=== PATIENT | female | born 1955 | race African-American/Black ===

== ENCOUNTER 2018-10-15 16:03 | Emergency (ER) | payer MEDICARE, MEDICAID ==
[~2018-10-15] VITALS: Ht 157.5 cm; Wt 91.0 kg
[~2018-10-15 16:03] MED LIST: AMLO10TA80; AMOX500T2; BENA40TA66; CARI350T27; GLIP10TA3; HYDR-2510; HYDR-3162; METF-517; NAPR-1176; OMEP-265; SIMV40TA5
[2018-10-15 22:41] LABS: BASOPHILS % 0.9 % (0.0-2.0); EOSINOPHILS % 2.1 % (0.0-5.0); HEMATOCRIT. 38.7 % (36.0-48.0); HEMOGLOBIN. 12.2 g/dL (12.0-16.0); LYMPHOCYTES % 35.3 % (20.0-50.0); MEAN CORPUSCULAR HEMOGLOBIN 24.9 pg (28.0-32.0); MEAN CORPUSCULAR VOLUME 78.7 fL (81.0-99.0); MEAN PLATELET VOLUME 7.4 fl (7.4-10.4); MONOCYTES % 6.9 % (2.0-8.0); NEUTROPHILS % 54.8 % (40.0-76.0); PLATELET 478 x1000/uL (130-400); RED BLOOD CELL COUNT 4.92 mill/uL (4.2-5.4); RED CELL DISTRIBUTION WIDTH 15.4 % (11.6-14.6)
[2018-10-15 22:47] LABS: CHLORIDE 97 mEq/L (98-107)
[2018-10-15 22:49] LABS: PROTHROMBIN TIME 9.8 sec (9.6-11.0)
[2018-10-15 23:20] LABS: CLARITY URINE CLEAR (CLEAR); COLOR URINE YELLOW (YELLOW); KETONES URINE NEGATIVE (NEGATIVE); LEUKOCYTE ESTERASE URINE NEGATIVE (NEGATIVE); NITRITE URINE POSITIVE (NEGATIVE); OCCULT BLOOD URINE NEGATIVE (NEGATIVE); PROTEIN URINE TRACE (NEGATIVE); SPECIFIC GRAVITY URINE 1.014 (1.005-1.030); UROBILINOGEN URINE 0.2 E.U./dL (0.2-1.0)
[2018-10-15] MEDS ORDERED: HYDROCODONE/ACETAMINOPHEN 5/325MG TABLET PO ONE (23:30)
[2018-10-16] MEDS ORDERED: CEPHALEXIN 250MG CAPSULE PO ONE (01:00)
[2018-10-16 03:03] VITALS: BP 150/78
== END 2018-10-16 03:12 | disposition home or self-care (01) ==
LOC: ER 16:03
DX: N39.0 Urinary tract infection, site not specified (principal); E11.9 Type 2 diabetes mellitus without complications; I10 Essential (primary) hypertension; M54.30 Sciatica, unspecified side; Z96.659 Presence of unspecified artificial knee joint; Z90.710 Acquired absence of both cervix and uterus
CPT/HCPCS: 36415; 81003; 87210; 99283

== ENCOUNTER 2020-07-18 07:38 | Inpatient (IN) | payer MEDICARE, MEDICAID ==
[~2020-07-18] VITALS: Ht 160 cm; Wt 87.1 kg
[~2020-07-18 07:38] MED LIST changes: -HYDR-2510; +HYDR50TA; -METF-517; +METF-817; +SIMV-46; -SIMV40TA5
[2020-07-18] MEDS ORDERED: SODIUM CHLORIDE 0.9% 1,000 ML IV ONE (08:30)
[2020-07-18 08:48] LABS: BASOPHILS % 0.6 % (0.0-2.0); HEMATOCRIT. 35.5 % (36.0-48.0); HEMOGLOBIN. 11.7 g/dL (12.0-16.0); LYMPHOCYTES % 28.1 % (20.0-50.0); MEAN CORPUSCULAR HEMOGLOBIN 27.9 pg (28.0-32.0); MEAN CORPUSCULAR VOLUME 84.5 fL (81.0-99.0); MEAN PLATELET VOLUME 7.5 fl (7.4-10.4); MONOCYTES % 8.7 % (2.0-8.0); NEUTROPHILS % 61.6 % (40.0-76.0); PLATELET 430 x1000/uL (130-400); RED CELL DISTRIBUTION WIDTH 14.4 % (11.6-14.6)
[2020-07-18 08:53] LABS: CHLORIDE 95 mEq/L (98-107)
[2020-07-18 09:02] LABS: BETA HYDROXYBUTYRATE 0.2 mMol/L (0.0-0.3)
[2020-07-18 09:16] LABS: BG BASE EXCESS 1.9 mmol/L (-2.0-2.0); BG CARBOXYHEMOGLOBIN 0.3 % (0.5-1.5); BG DEOXYHEMOGLOBIN 4.4 % (0.0-5.0); BG FRACTION INSPIRED OXYGEN 21; BG HCO3 ACT 27.1 mmol/L (22.0-26.0); BG METHEMOGLOBIN 0.2 % (0.0-1.5); BG OXYGEN SATURATION 95.6 % (92.0-98.5); BG OXYHEMOGLOBIN 95.1 % (94.0-97.0); BG PCO2 45.1 mmHg (35.0-45.0); BG PH 7.397 (7.350-7.450); BG PO2 79.3 mmHg (75.0-100.0); BG SAMPLE SITE RIGHT RADIAL; BG VENT MODE ROOM AIR
[2020-07-18 09:50] LABS: CLARITY URINE TURBID (CLEAR); COLOR URINE YELLOW (YELLOW); KETONES URINE NEGATIVE (NEGATIVE); LEUKOCYTE ESTERASE URINE 2+ (NEGATIVE); NITRITE URINE NEGATIVE (NEGATIVE); OCCULT BLOOD URINE 3+ (NEGATIVE); PROTEIN URINE 1+ (NEGATIVE); SPECIFIC GRAVITY URINE 1.029 (1.005-1.030); UROBILINOGEN URINE 0.2 E.U./dL (0.2-1.0)
[2020-07-18] MEDS ORDERED: LEVOFLOXACIN 750MG PREMIX 150 ML IV ONE (10:00)
[2020-07-18] MEDS ORDERED: INSULIN REGULAR (HUMULIN R) 300UNITS/3ML VIAL IV ONE (10:00)
[2020-07-18] MEDS ORDERED: ONDANSETRON HCL 4MG/2ML INJ IV PRN (16:15)
[2020-07-18] MEDS ORDERED: DEXTROSE 50% WATER 50ML SYRINGE IV PRN (16:15)
[2020-07-18] MEDS ORDERED: CLONIDINE 0.1MG TABLET PO PRN (16:15)
[2020-07-18] MEDS ORDERED: DIPHENHYDRAMINE 50MG/ML VIAL IV PRN (16:15)
[2020-07-18] MEDS ORDERED: ACETAMINOPHEN 325MG TABLET PO PRN ×2 (16:15)
[2020-07-18] MEDS ORDERED: IPRATROPIUM/ALBUTEROL 0.5-3(2.5)MG/3ML NEB HHN PRN (16:15)
[2020-07-18] MEDS: SODIUM CHLORIDE 0.9% 1,000 ML IV SCH (16:48)
[2020-07-18] MEDS: BLOOD SUGAR DIAGNOSTIC STRIP TEST SCH ×2 (17:34→21:11)
[2020-07-18] MEDS: INSULIN LISPRO 100 UNITS/ML SUBCUT SCH ×2 (19:04→21:16)
[2020-07-18 22:30] VITALS: BP 137/72
[2020-07-19] VITALS: BP 146/76
[2020-07-19] MEDS ORDERED: GABAPENTIN 400MG CAPSULE PO NR (01:15)
[2020-07-19] MEDS: SODIUM CHLORIDE 0.9% 1,000 ML IV SCH ×3 (01:54→21:43)
[2020-07-19] MEDS ORDERED: INSULIN GLARGINE UD 100 UNITS/ML SYR SUBCUT SCH ×2 (02:00→22:00)
[2020-07-19 04:00] VITALS: BP 136/61
[2020-07-19] MEDS ORDERED: HYDR100T26 PO (04:22)
[2020-07-19] MEDS ORDERED: GABA800T97 PO (04:26)
[2020-07-19] MEDS ORDERED: ATEN50TA PO (04:32)
[2020-07-19] MEDS ORDERED: MECL-159 PO (04:33)
[2020-07-19] MEDS ORDERED: CLON0.2T PO (04:34)
[2020-07-19] MEDS ORDERED: AMYL1CAP61 PO (04:37)
[2020-07-19] MEDS ORDERED: GABA-290 PO (04:38)
[2020-07-19] MEDS ORDERED: OMEP20CA14 PO (04:38)
[2020-07-19] MEDS ORDERED: ZOLP12.543 PO (04:40)
[2020-07-19] MEDS ORDERED: INSU100I24 SQ (04:41)
[2020-07-19] MEDS ORDERED: METF-817 (04:50)
[2020-07-19 06:42] LABS: BASOPHILS % 0.5 % (0.0-2.0); EOSINOPHILS % 1.2 % (0.0-5.0); LYMPHOCYTES % 35.2 % (20.0-50.0); MEAN CORPUSCULAR HEMOGLOBIN 27.7 pg (28.0-32.0); MEAN CORPUSCULAR VOLUME 83.3 fL (81.0-99.0); MEAN PLATELET VOLUME 7.8 fl (7.4-10.4); MONOCYTES % 7.5 % (2.0-8.0); NEUTROPHILS % 55.6 % (40.0-76.0); PLATELET 453 x1000/uL (130-400); RED BLOOD CELL COUNT 4.32 mill/uL (4.2-5.4); RED CELL DISTRIBUTION WIDTH 14.4 % (11.6-14.6)
[2020-07-19 07:01] LABS: CHLORIDE 100 mEq/L (98-107)
[2020-07-19] MEDS: GABAPENTIN 300MG CAPSULE PO SCH ×3 (07:06→21:38)
[2020-07-19] MEDS: METFORMIN HCL 850MG TABLET PO SCH ×2 (07:06→17:24)
[2020-07-19] MEDS: INSULIN LISPRO 100 UNITS/ML SUBCUT SCH ×4 (07:07→20:24)
[2020-07-19] MEDS: BLOOD SUGAR DIAGNOSTIC STRIP TEST SCH ×4 (07:08→20:23)
[2020-07-19 07:18] LABS: PHOSPHORUS 2.9 mg/dL (2.5-4.9)
[2020-07-19 08:00] VITALS: BP 141/58
[2020-07-19] MEDS: AMLODIPINE 10MG TABLET PO SCH (08:47)
[2020-07-19] MEDS: HYDROCODONE/APAP 7.5/325MG 1 TAB TABLET PO PRN (08:48)
[2020-07-19] MEDS ORDERED: LEVOFLOXACIN 250MG PREMIX 50 ML IV SCH (09:00)
[2020-07-19] MEDS ORDERED: LEVOFLOXACIN 500MG PREMIX 100 ML IV SCH (11:30)
[2020-07-19 12:00] VITALS: BP 152/80
[2020-07-19] MEDS ORDERED: CEFTRIAXONE 1 G PREMIX 50 ML IV SCH (12:45)
[2020-07-19] MEDS: CEFTRIAXONE 1,000 MG in DEXTROSE 5% WATER 50 ML IV SCH (13:58)
[2020-07-19 16:00] VITALS: BP 123/64
[2020-07-19] MEDS ORDERED: MAGNESIUM 2 G PREMIX 50 ML IV NR (18:00)
[2020-07-19 20:00] VITALS: BP 158/80
[2020-07-19] MEDS ORDERED: ATORVASTATIN CALCIUM 40MG TABLET PO SCH (21:00)
[2020-07-19] MEDS ORDERED: IOHEXOL-300 100 ML BOTTLE ONE (22:43)
[2020-07-20] VITALS: BP 135/51
[2020-07-20] MEDS: HYDROCODONE/APAP 7.5/325MG 1 TAB TABLET PO PRN ×2 (00:46→12:41)
[2020-07-20 04:00] VITALS: BP 129/54
[2020-07-20] MEDS: BLOOD SUGAR DIAGNOSTIC STRIP TEST SCH ×2 (05:51→11:50)
[2020-07-20] MEDS: GABAPENTIN 300MG CAPSULE PO SCH ×2 (05:56→14:00)
[2020-07-20] MEDS: METFORMIN HCL 850MG TABLET PO SCH (06:25)
[2020-07-20] MEDS: INSULIN LISPRO 100 UNITS/ML SUBCUT SCH ×2 (06:26→12:42)
[2020-07-20 08:00] VITALS: BP 168/109
[2020-07-20] MEDS: SODIUM CHLORIDE 0.9% 1,000 ML IV SCH (08:37)
[2020-07-20] MEDS: AMLODIPINE 10MG TABLET PO SCH (08:38)
[2020-07-20] MEDS ORDERED: LEVOFLOXACIN 500MG PREMIX 100 ML IV SCH (09:00)
[2020-07-20 12:00] VITALS: BP 143/66
[2020-07-20] MEDS: CEFTRIAXONE 1,000 MG in DEXTROSE 5% WATER 50 ML IV SCH (14:53)
[2020-07-20 14:59] VITALS: BP 143/66
== END 2020-07-20 15:49 | disposition home or self-care (01) | DRG 689 ==
LOC: ER 07:38 → 5WST 13:09 → EDBEDREQ 13:15 → EDBEDREQTM 13:15 → ENRESERV 20:47
PROVIDERS: ADMIT Internal Medicine; ATTEND Internal Medicine
DX: N30.91 Cystitis, unspecified with hematuria (principal); E11.00 Type 2 diabetes mellitus with hyperosmolarity without nonketotic hyperglycemic-hyperosmolar coma (NKHHC); E44.1 Mild protein-calorie malnutrition; E87.1 Hypo-osmolality and hyponatremia; I10 Essential (primary) hypertension; E11.40 Type 2 diabetes mellitus with diabetic neuropathy, unspecified; N32.89 Other specified disorders of bladder; E11.65 Type 2 diabetes mellitus with hyperglycemia; I25.10 Atherosclerotic heart disease of native coronary artery without angina pectoris; J45.909 Unspecified asthma, uncomplicated; Z90.711 Acquired absence of uterus with remaining cervical stump; Z96.659 Presence of unspecified artificial knee joint; Z87.440 Personal history of urinary (tract) infections; Z68.34 Body mass index [BMI] 34.0-34.9, adult
CPT/HCPCS: 36415; 36600; 74178; 76830; 76856; 80048; 80053; 81003; 82010; 82375; 82805; 82962; 83036; 83735; 84100; 85025; 86850; 86900; 93005; 93970; 99285; J0696; J1815; J1956; J3475; J7030; J7060; Q9967

== ENCOUNTER 2020-09-21 05:40 | Inpatient (IN) | payer MEDICARE, MEDICAID ==
[~2020-09-21] VITALS: Ht 157.5 cm; Wt 83.9 kg
[~2020-09-21 05:40] MED LIST changes: -AMOX500T2; +AMYL1CAP61 PO; +ATEN50TA PO; -BENA40TA66; -CARI350T27; +CLON0.2T PO; +GABA-290 PO; -GLIP10TA3; +HYDR100T26 PO; +INSU100I24 SQ; +MECL-159 PO; -NAPR-1176; -OMEP-265; +OMEP20CA14 PO; -SIMV-46; +ZOLP12.543 PO
[2020-09-21] MEDS ORDERED: ALBUTEROL (0.083%) 2.5MG/3ML NEB HHN STA (06:33)
[2020-09-21] MEDS ORDERED: IPRATROPIUM BROMIDE (0.02%) 0.5MG/2.5ML NEB HHN STA (06:33)
[2020-09-21] MEDS ORDERED: METHYLPREDNISOLONE SOD SUCC 125 MG/2 ML VIAL IV STA (06:59)
[2020-09-21] MEDS ORDERED: MAGNESIUM 2 G PREMIX 50 ML IV STA (06:59)
[2020-09-21 07:14] LABS: BASOPHILS % 0.6 % (0.0-2.0); EOSINOPHILS % 1.2 % (0.0-5.0); HEMATOCRIT. 32.9 % (36.0-48.0); HEMOGLOBIN. 10.6 g/dL (12.0-16.0); LYMPHOCYTES % 27.3 % (20.0-50.0); MEAN CORPUSCULAR HEMOGLOBIN 26.8 pg (28.0-32.0); MEAN CORPUSCULAR VOLUME 83.3 fL (81.0-99.0); MEAN PLATELET VOLUME 6.9 fl (7.4-10.4); MONOCYTES % 7.2 % (2.0-8.0); NEUTROPHILS % 63.7 % (40.0-76.0); PLATELET 460 x1000/uL (130-400); RED BLOOD CELL COUNT 3.95 mill/uL (4.2-5.4); RED CELL DISTRIBUTION WIDTH 14.2 % (11.6-14.6)
[2020-09-21] MEDS ORDERED: CEFTRIAXONE 1 G PREMIX 50 ML IV ONE (07:15)
[2020-09-21] MEDS ORDERED: AZITHROMYCIN 500 MG in DEXT 5% WATER 250 ML IV ONE (07:15)
[2020-09-21 07:17] LABS: CHLORIDE 103 mEq/L (98-107)
[2020-09-21 15:50] VITALS: BP 191/99
[2020-09-21 16:30] VITALS: BP 191/99
[2020-09-21] MEDS ORDERED: IPRATROPIUM/ALBUTEROL 0.5-3(2.5)MG/3ML NEB HHN ONE (16:45)
[2020-09-21] MEDS ORDERED: DEXTROSE 50% WATER 50ML SYRINGE IV PRN (16:45)
[2020-09-21] MEDS ORDERED: ATENOLOL 50 MG TABLET PO SCH (17:45)
[2020-09-21] MEDS ORDERED: AMLODIPINE 10MG TABLET PO SCH (17:45)
[2020-09-21] MEDS: BLOOD SUGAR DIAGNOSTIC STRIP TEST SCH ×2 (17:54→21:07)
[2020-09-21] MEDS: INSULIN LISPRO 100 UNITS/ML SUBCUT SCH ×2 (18:18→21:46)
[2020-09-21 19:59] VITALS: BP 157/67
[2020-09-21] MEDS ORDERED: ZOLPIDEM TARTRATE 5MG TABLET PO PRN (21:00)
[2020-09-21] MEDS ORDERED: INSULIN GLARGINE UD 100 UNITS/ML SYR SUBCUT SCH (21:00)
[2020-09-21] MEDS: IPRATROPIUM/ALBUTEROL 0.5-3(2.5)MG/3ML NEB HHN SCH (21:10)
[2020-09-21] MEDS: OMEPRAZOLE 20MG CAPSULE EXTENDED RELEASE PO SCH (21:45)
[2020-09-21] MEDS: HYDRALAZINE HCL 100MG TABLET PO SCH (21:46)
[2020-09-21] MEDS: CLONIDINE 0.2MG TABLET PO SCH (21:46)
[2020-09-21] MEDS ORDERED: METHYLPREDNISOLONE SOD SUCC 125 MG/2 ML VIAL IV SCH (22:00)
[2020-09-21 23:58] VITALS: BP 140/70
[2020-09-22] MEDS: IPRATROPIUM/ALBUTEROL 0.5-3(2.5)MG/3ML NEB HHN SCH ×3 (00:36→13:05)
[2020-09-22] MEDS: GABAPENTIN 300MG CAPSULE PO SCH ×2 (01:29→08:39)
[2020-09-22 04:00] VITALS: BP 151/77
[2020-09-22] MEDS: BLOOD SUGAR DIAGNOSTIC STRIP TEST SCH ×3 (06:22→17:20)
[2020-09-22] MEDS: OMEPRAZOLE 20MG CAPSULE EXTENDED RELEASE PO SCH (06:36)
[2020-09-22] MEDS: INSULIN LISPRO 100 UNITS/ML SUBCUT SCH ×3 (06:39→18:12)
[2020-09-22] MEDS ORDERED: GLIPIZIDE 10MG TABLET PO SCH (07:20)
[2020-09-22 08:09] VITALS: BP 156/82
[2020-09-22] MEDS: METFORMIN HCL 500MG TABLET PO SCH ×2 (08:38→18:07)
[2020-09-22] MEDS: HYDRALAZINE HCL 100MG TABLET PO SCH (08:38)
[2020-09-22] MEDS: LIPASE/PROTEASE/AMYLASE 4,200/14,200/24,600 UNITS CAP DR PO SCH ×3 (08:38→18:06)
[2020-09-22] MEDS: CLONIDINE 0.2MG TABLET PO SCH (08:39)
[2020-09-22] MEDS ORDERED: ATENOLOL 50 MG TABLET PO SCH (09:00)
[2020-09-22] MEDS ORDERED: AMLODIPINE 10MG TABLET PO SCH (09:00)
[2020-09-22 11:03] VITALS: BP 126/66
[2020-09-22 16:42] VITALS: BP 147/71
[2020-09-22 18:22] VITALS: BP 147/71
[2020-09-22] MEDS ORDERED: FAMOTIDINE 20MG TABLET PO SCH (21:00)
== END 2020-09-22 20:40 | disposition home or self-care (01) | DRG 189 ==
LOC: ER 05:40 → EDBEDREQ 07:48 → ENRESERV 13:15 → 6WST 17:36
PROVIDERS: ADMIT Internal Medicine; ATTEND Internal Medicine
DX: J96.01 Acute respiratory failure with hypoxia (principal); J45.901 Unspecified asthma with (acute) exacerbation; E66.9 Obesity, unspecified; E11.9 Type 2 diabetes mellitus without complications; I10 Essential (primary) hypertension; Z96.659 Presence of unspecified artificial knee joint; G62.9 Polyneuropathy, unspecified; G89.29 Other chronic pain; K21.9 Gastro-esophageal reflux disease without esophagitis; M54.5 Low back pain; Z82.49 Family history of ischemic heart disease and other diseases of the circulatory system; Z82.5 Family history of asthma and other chronic lower respiratory diseases; Z83.3 Family history of diabetes mellitus; Z68.33 Body mass index [BMI] 33.0-33.9, adult
CPT/HCPCS: 36415; 71045; 73030; 80053; 82962; 83036; 83605; 83880; 84484; 85025; 93005; 94640; 99291; J0456; J0696; J1815; J2930; J3475; J7060

== ENCOUNTER 2020-10-10 23:29 | Inpatient (IN) | payer MEDICARE, MEDICAID ==
[~2020-10-10] VITALS: Ht 165.1 cm; Wt 92.5 kg
[2020-10-10] MEDS ORDERED: METHYLPREDNISOLONE SOD SUCC 125 MG/2 ML VIAL IV STA (23:48)
[2020-10-10] MEDS ORDERED: IPRATROPIUM BROMIDE (0.02%) 0.5MG/2.5ML NEB HHN STA (23:48)
[2020-10-10] MEDS ORDERED: ALBUTEROL (0.083%) 2.5MG/3ML NEB HHN STA (23:48)
[2020-10-10] MEDS ORDERED: MAGNESIUM 2 G PREMIX 50 ML IV STA (23:48)
[2020-10-11] MEDS ORDERED: CEFTRIAXONE 1 G PREMIX 50 ML IV ONE
[2020-10-11] MEDS ORDERED: AZITHROMYCIN 500 MG in DEXT 5% WATER 250 ML IV ONE
[2020-10-11 00:56] LABS: BASOPHILS % 0.9 % (0.0-2.0); EOSINOPHILS % 0.9 % (0.0-5.0); HEMATOCRIT. 34.5 % (36.0-48.0); HEMOGLOBIN. 11.3 g/dL (12.0-16.0); LYMPHOCYTES % 24.6 % (20.0-50.0); MEAN CORPUSCULAR HEMOGLOBIN 27.4 pg (28.0-32.0); MEAN PLATELET VOLUME 7.8 fl (7.4-10.4); MONOCYTES % 5.3 % (2.0-8.0); NEUTROPHILS % 68.3 % (40.0-76.0); PLATELET 528 x1000/uL (130-400); RED BLOOD CELL COUNT 4.11 mill/uL (4.2-5.4); RED CELL DISTRIBUTION WIDTH 14.2 % (11.6-14.6)
[2020-10-11 01:03] LABS: CHLORIDE 102 mEq/L (98-107)
[2020-10-11] MEDS ORDERED: ALBUTEROL (0.083%) 2.5MG/3ML NEB INH PRN (07:30)
[2020-10-11] MEDS ORDERED: DEXTROSE 50% WATER 50ML SYRINGE IV PRN (07:30)
[2020-10-11] MEDS: INSULIN LISPRO 100 UNITS/ML SUBCUT SCH ×4 (08:20→21:01)
[2020-10-11] MEDS ORDERED: INSULIN GLARGINE UD 100 UNITS/ML SYR SUBCUT NR (08:30)
[2020-10-11] MEDS: BLOOD SUGAR DIAGNOSTIC STRIP TEST SCH ×4 (09:20→20:48)
[2020-10-11] MEDS: DEXAMETHASONE 10 MG/ML VIAL IV SCH (09:27)
[2020-10-11] MEDS: GABAPENTIN 300MG CAPSULE PO PRN ×2 (10:54→20:59)
[2020-10-11] MEDS: ENOXAPARIN 40MG/0.4ML SYR SUBCUT SCH (10:54)
[2020-10-11 12:02] VITALS: BP 151/73
[2020-10-11 16:00] VITALS: BP 159/77
[2020-10-11 16:25] VITALS: BP 151/73
[2020-10-11 20:00] VITALS: BP 186/90
[2020-10-11] MEDS: HYDRALAZINE HCL 100MG TABLET PO SCH (21:00)
[2020-10-11] MEDS: HYDROCODONE/ACETAMINOPHEN 10/325MG TABLET PO PRN (21:00)
[2020-10-11] MEDS ORDERED: AZITHROMYCIN 250 MG TABLET PO SCH (22:00)
[2020-10-11] MEDS ORDERED: INSULIN GLARGINE UD 100 UNITS/ML SYR SUBCUT SCH (22:00)
[2020-10-11] MEDS ORDERED: NALOXONE HCL 0.4MG/ML VIAL IV PRN (22:15)
[2020-10-11] MEDS: CLONIDINE 0.2MG TABLET PO SCH (22:18)
[2020-10-11] MEDS: INSULIN GLARGINE UD 100 UNITS/ML SYR SUBCUT SCH (22:33)
[2020-10-11] MEDS ORDERED: CEFTRIAXONE 1 G PREMIX 50 ML IV SCH (23:00)
[2020-10-11] MEDS ORDERED: CEFTRIAXONE 1,000 MG in DEXTROSE 5% WATER 50 ML IV SCH (23:00)
[2020-10-12] VITALS: BP 153/78
[2020-10-12 04:00] VITALS: BP 123/63
[2020-10-12] MEDS: BLOOD SUGAR DIAGNOSTIC STRIP TEST SCH ×2 (06:07→11:26)
[2020-10-12] MEDS: HYDROCODONE/ACETAMINOPHEN 10/325MG TABLET PO PRN (06:13)
[2020-10-12] MEDS: HYDRALAZINE HCL 100MG TABLET PO SCH (06:13)
[2020-10-12] MEDS: INSULIN LISPRO 100 UNITS/ML SUBCUT SCH ×2 (06:14→11:45)
[2020-10-12 08:00] VITALS: BP 179/92
[2020-10-12] MEDS: CLONIDINE 0.2MG TABLET PO SCH (08:30)
[2020-10-12] MEDS: DEXAMETHASONE 10 MG/ML VIAL IV SCH (08:31)
[2020-10-12] MEDS ORDERED: AMLODIPINE 10MG TABLET PO SCH (09:00)
[2020-10-12] MEDS ORDERED: ATENOLOL 50 MG TABLET PO SCH (09:00)
[2020-10-12] MEDS: ENOXAPARIN 40MG/0.4ML SYR SUBCUT SCH (10:24)
[2020-10-12] MEDS: INSULIN GLARGINE UD 100 UNITS/ML SYR SUBCUT SCH (10:31)
[2020-10-12] MEDS ORDERED: LEVO500T89 MT (11:23)
[2020-10-12] MEDS ORDERED: P20 MT (11:24)
[2020-10-12 11:29] VITALS: BP 143/85
[2020-10-12 12:00] VITALS: BP 140/69
[2020-10-12] MEDS ORDERED: CLONIDINE 0.2MG TABLET PO SCH (15:00)
[2020-10-12] MEDS ORDERED: ENOXAPARIN 30MG/0.3ML SYR SUBCUT SCH (21:00)
== END 2020-10-12 15:47 | disposition home or self-care (01) | DRG 189 ==
LOC: ER 23:29 → 7EST 10-11 01:10 → EDBEDREQTM 10-11 01:15 → EDBEDREQ 10-11 01:15 → ENRESERV 10-11 07:14 → ER 10-11 09:09
PROVIDERS: ADMIT Internal Medicine Nephrology; ATTEND Internal Medicine Nephrology
DX: J96.01 Acute respiratory failure with hypoxia (principal); J45.901 Unspecified asthma with (acute) exacerbation; E87.1 Hypo-osmolality and hyponatremia; E11.65 Type 2 diabetes mellitus with hyperglycemia; D64.9 Anemia, unspecified; Z20.822 Contact with and (suspected) exposure to COVID-19; Z88.8 Allergy status to other drugs, medicaments and biological substances; Z79.4 Long term (current) use of insulin; Z79.899 Other long term (current) drug therapy; Z79.891 Long term (current) use of opiate analgesic; Z82.49 Family history of ischemic heart disease and other diseases of the circulatory system
CPT/HCPCS: 36415; 71045; 80053; 82962; 83605; 83880; 84484; 85025; 87426; 93005; 94640; 99291; J0456; J0696; J1100; J1650; J1815; J2930; J3475; J7040; J7060

== ENCOUNTER 2020-10-28 07:21 | Inpatient (IN) | payer MEDICARE, MEDICAID ==
[~2020-10-28] VITALS: Ht 157.5 cm; Wt 88.5 kg
[~2020-10-28 07:21] MED LIST changes: +LEVO500T89 MT; +P20 MT
[2020-10-28] MEDS ORDERED: METHYLPREDNISOLONE SOD SUCC 125 MG/2 ML VIAL IV STA (07:23)
[2020-10-28] MEDS ORDERED: ALBUTEROL (0.083%) 2.5MG/3ML NEB HHN STA (07:23)
[2020-10-28] MEDS ORDERED: IPRATROPIUM BROMIDE (0.02%) 0.5MG/2.5ML NEB HHN STA (07:23)
[2020-10-28 08:05] LABS: BASOPHILS % 0.5 % (0.0-2.0); EOSINOPHILS % 0.6 % (0.0-5.0); HEMATOCRIT. 35.1 % (36.0-48.0); HEMOGLOBIN. 11.1 g/dL (12.0-16.0); LYMPHOCYTES % 21.1 % (20.0-50.0); MEAN CORPUSCULAR HEMOGLOBIN 26.9 pg (28.0-32.0); MEAN CORPUSCULAR VOLUME 85.5 fL (81.0-99.0); MEAN PLATELET VOLUME 8.7 fl (7.4-10.4); MONOCYTES % 5.5 % (2.0-8.0); NEUTROPHILS % 72.3 % (40.0-76.0); PLATELET 439 x1000/uL (130-400); RED BLOOD CELL COUNT 4.11 mill/uL (4.2-5.4); RED CELL DISTRIBUTION WIDTH 15.4 % (11.6-14.6)
[2020-10-28 08:25] LABS: CHLORIDE 101 mEq/L (98-107)
[2020-10-28] MEDS ORDERED: ONDANSETRON HCL 4MG/2ML INJ IV PRN (13:00)
[2020-10-28] MEDS ORDERED: INSULIN GLARGINE UD 100 UNITS/ML SYR SUBCUT NR (13:00)
[2020-10-28] MEDS ORDERED: IPRATROPIUM/ALBUTEROL 0.5-3(2.5)MG/3ML NEB HHN PRN (13:00)
[2020-10-28] MEDS ORDERED: ALBUTEROL 6.7GM HFA INHALER ORI PRN (14:00)
[2020-10-28] MEDS ORDERED: DEXTROSE 50% WATER 50ML SYRINGE IV PRN (14:00)
[2020-10-28] MEDS ORDERED: AZITHROMYCIN 500 MG TABLET PO NR (14:15)
[2020-10-28] MEDS ORDERED: CEFTRIAXONE 1,000 MG in DEXTROSE 5% WATER 50 ML IV SCH (15:00)
[2020-10-28] MEDS: DEXAMETHASONE 6MG TABLET PO SCH ×2 (15:17→15:43)
[2020-10-28] MEDS: BLOOD SUGAR DIAGNOSTIC STRIP TEST SCH ×2 (16:53→21:00)
[2020-10-28 17:00] LABS: BG BASE EXCESS -4.7 mmol/L (-2.0-2.0); BG CARBOXYHEMOGLOBIN 0.3 % (0.5-1.5); BG DEOXYHEMOGLOBIN 3.7 % (0.0-5.0); BG FRACTION INSPIRED OXYGEN 36; BG HCO3 ACT 20.4 mmol/L (22.0-26.0); BG METHEMOGLOBIN 0.3 % (0.0-1.5); BG OXYGEN SATURATION 96.3 % (92.0-98.5); BG OXYHEMOGLOBIN 95.7 % (94.0-97.0); BG PCO2 37.4 mmHg (35.0-45.0); BG PH 7.354 (7.350-7.450); BG PO2 84.7 mmHg (75.0-100.0); BG SAMPLE SITE RIGHT RADIAL; BG TOTAL HEMOGLOBIN 11.2 g/dL (12.0-18.0); BG VENT MODE NASAL CANNULA
[2020-10-28] MEDS: INSULIN LISPRO 100 UNITS/ML SUBCUT SCH ×2 (17:23→23:04)
[2020-10-28] MEDS: METHYLPREDNISOLONE SOD SUCC 40 MG/ML VIAL IV SCH (17:46)
[2020-10-28] MEDS: ENOXAPARIN 30MG/0.3ML SYR SUBCUT SCH (18:03)
[2020-10-28] MEDS ORDERED: INSULIN GLARGINE UD 100 UNITS/ML SYR SUBCUT SCH (22:00)
[2020-10-28] MEDS: ACETAMINOPHEN 325MG TABLET PO PRN (23:04)
[2020-10-29] MEDS: METHYLPREDNISOLONE SOD SUCC 40 MG/ML VIAL IV SCH ×3 (01:00→18:21)
[2020-10-29 03:33] LABS: *AMPHETAMINES SCREEN URINE NEGATIVE (NEGATIVE); *BARBITURATES SCREEN URINE NEGATIVE (NEGATIVE)
[2020-10-29 03:34] LABS: *BENZODIAZEPINES SCREEN URINE NEGATIVE (NEGATIVE); *COCAINE SCREEN URINE NEGATIVE (NEGATIVE); METHADONE URINE SCREEN NEGATIVE (NEGATIVE); OPIATES URINE SCREEN NEGATIVE (NEGATIVE)
[2020-10-29 03:35] LABS: CANNABINOID URINE SCREEN NEGATIVE (NEGATIVE); PHENCYCLIDINE URINE SCREEN NEGATIVE (NEGATIVE)
[2020-10-29 06:00] VITALS: BP 163/76
[2020-10-29] MEDS: BLOOD SUGAR DIAGNOSTIC STRIP TEST SCH ×4 (07:14→21:00)
[2020-10-29] MEDS: ENOXAPARIN 30MG/0.3ML SYR SUBCUT SCH ×2 (07:14→18:22)
[2020-10-29 08:00] VITALS: BP 163/78
[2020-10-29] MEDS: AZITHROMYCIN 250 MG TABLET PO SCH (08:18)
[2020-10-29] MEDS: INSULIN LISPRO 100 UNITS/ML SUBCUT SCH ×4 (08:22→22:45)
[2020-10-29] MEDS: AMLODIPINE 10MG TABLET PO SCH (09:46)
[2020-10-29] MEDS: INSULIN GLARGINE UD 100 UNITS/ML SYR SUBCUT SCH ×2 (09:47→22:44)
[2020-10-29] MEDS: GABAPENTIN 300MG CAPSULE PO SCH ×2 (11:59→18:21)
[2020-10-29 12:00] VITALS: BP 140/77
[2020-10-29] MEDS ORDERED: CEFTRIAXONE 1,000 MG in DEXTROSE 5% WATER 50 ML IV SCH (15:00)
[2020-10-29 16:00] VITALS: BP 142/66
[2020-10-29 19:48] LABS: BASOPHILS % 0.3 % (0.0-2.0); HEMATOCRIT. 36.2 % (36.0-48.0); HEMOGLOBIN. 11.6 g/dL (12.0-16.0); LYMPHOCYTES % 8.1 % (20.0-50.0); MEAN CORPUSCULAR HEMOGLOBIN 27.1 pg (28.0-32.0); MEAN CORPUSCULAR VOLUME 84.5 fL (81.0-99.0); MEAN PLATELET VOLUME 8.3 fl (7.4-10.4); MONOCYTES % 3.8 % (2.0-8.0); NEUTROPHILS % 87.8 % (40.0-76.0); PLATELET 500 x1000/uL (130-400); RED BLOOD CELL COUNT 4.28 mill/uL (4.2-5.4); RED CELL DISTRIBUTION WIDTH 15.2 % (11.6-14.6)
[2020-10-29 19:53] LABS: CHLORIDE 104 mEq/L (98-107)
[2020-10-29] MEDS ORDERED: PNEUMOCOCCAL 23-VAL P-SAC VAC 0.5 ML IM ONE (20:00)
[2020-10-29] MEDS ORDERED: INFLUENZA VACCINE 05/PF 0.5 ML SYRINGE IM ONE (20:00)
[2020-10-29] MEDS: ACETAMINOPHEN 325MG TABLET PO PRN (22:46)
[2020-10-30] VITALS: BP 174/87
[2020-10-30] MEDS: METHYLPREDNISOLONE SOD SUCC 40 MG/ML VIAL IV SCH ×2 (01:59→08:14)
[2020-10-30 04:00] VITALS: BP 197/109
[2020-10-30] MEDS ORDERED: CLONIDINE 0.1MG TABLET PO PRN (05:45)
[2020-10-30] MEDS: ENOXAPARIN 30MG/0.3ML SYR SUBCUT SCH (06:37)
[2020-10-30] MEDS: INSULIN LISPRO 100 UNITS/ML SUBCUT SCH ×2 (06:38→12:08)
[2020-10-30] MEDS: BLOOD SUGAR DIAGNOSTIC STRIP TEST SCH ×2 (06:51→11:18)
[2020-10-30 07:40] VITALS: BP 160/82
[2020-10-30] MEDS: AMLODIPINE 10MG TABLET PO SCH (08:14)
[2020-10-30] MEDS: GABAPENTIN 300MG CAPSULE PO SCH (08:14)
[2020-10-30 08:47] LABS: BG BASE EXCESS 5.2 mmol/L (-2.0-2.0); BG CARBOXYHEMOGLOBIN 0.2 % (0.5-1.5); BG DEOXYHEMOGLOBIN 7.2 % (0.0-5.0); BG FRACTION INSPIRED OXYGEN 21; BG HCO3 ACT 30.7 mmol/L (22.0-26.0); BG METHEMOGLOBIN 0.2 % (0.0-1.5); BG OXYGEN SATURATION 92.8 % (92.0-98.5); BG OXYHEMOGLOBIN 92.4 % (94.0-97.0); BG PH 7.415 (7.350-7.450); BG PO2 66.2 mmHg (75.0-100.0); BG SAMPLE SITE RIGHT RADIAL; BG TOTAL HEMOGLOBIN 12.2 g/dL (12.0-18.0); BG VENT MODE ROOM AIR
[2020-10-30] MEDS: INSULIN GLARGINE UD 100 UNITS/ML SYR SUBCUT SCH (09:07)
[2020-10-30] MEDS: AZITHROMYCIN 250 MG TABLET PO SCH (10:47)
[2020-10-30 11:47] VITALS: BP 154/76
[2020-10-30] MEDS ORDERED: P20 MT (13:31)
[2020-10-30] MEDS ORDERED: IPRA3AMP9 NEB (13:31)
[2020-10-30] MEDS ORDERED: LEVO500T89 MT (13:31)
[2020-10-30 13:35] VITALS: BP 154/76
== END 2020-10-30 15:20 | disposition home or self-care (01) | DRG 871 ==
LOC: ER 07:32 → MICUSO 11:10 → 3WST 19:32 → MICUSO 22:45 → 7WST 10-29 02:02 → 7EST 10-29 16:39
PROVIDERS: ADMIT Internal Medicine; ATTEND Internal Medicine
PROC: 5A09357 Assistance with Respiratory Ventilation, Less than 24 Consecutive Hours, Continuous Positive Airway Pressure (ICD-10-PCS; principal; 2020-10-28)
DX: A41.9 Sepsis, unspecified organism (principal); J18.9 Pneumonia, unspecified organism; J96.00 Acute respiratory failure, unspecified whether with hypoxia or hypercapnia; J45.901 Unspecified asthma with (acute) exacerbation; I50.30 Unspecified diastolic (congestive) heart failure; D72.829 Elevated white blood cell count, unspecified; E11.65 Type 2 diabetes mellitus with hyperglycemia; E66.9 Obesity, unspecified; I10 Essential (primary) hypertension; M54.30 Sciatica, unspecified side; D64.9 Anemia, unspecified; E11.40 Type 2 diabetes mellitus with diabetic neuropathy, unspecified; Z20.822 Contact with and (suspected) exposure to COVID-19; Z82.49 Family history of ischemic heart disease and other diseases of the circulatory system; Z88.8 Allergy status to other drugs, medicaments and biological substances; Z79.899 Other long term (current) drug therapy; Z79.84 Long term (current) use of oral hypoglycemic drugs; Z79.891 Long term (current) use of opiate analgesic; Z68.35 Body mass index [BMI] 35.0-35.9, adult
CPT/HCPCS: 36415; 36600; 71045; 80048; 80053; 80305; 82375; 82805; 82962; 83880; 84484; 85025; 87426; 90686; 93005; 94640; 94660; 99291; J0696; J1650; J1815; J2920; J2930; J7060; U0003; U0005

== ENCOUNTER 2020-11-07 05:31 | Inpatient (IN) | payer MEDICARE, MEDICAID ==
[~2020-11-07] VITALS: Ht 157.5 cm; Wt 95.7 kg
[2020-11-07] VITALS (33 sets, daily range): BP systolic 87–181; BP diastolic 52–136
[~2020-11-07 05:31] MED LIST changes: +IPRA3AMP9 NEB
[2020-11-07] MEDS ORDERED: METHYLPREDNISOLONE SOD SUCC 125 MG/2 ML VIAL IV STA (05:51)
[2020-11-07] MEDS ORDERED: ONDANSETRON HCL 4MG/2ML INJ IV STA (05:51)
[2020-11-07] MEDS ORDERED: MORPHINE SULFATE 4 MG/ML CPJ (NOT FOR IM USE) IV STA (05:51)
[2020-11-07] MEDS ORDERED: IPRATROPIUM BROMIDE (0.02%) 0.5MG/2.5ML NEB HHN STA (05:51)
[2020-11-07] MEDS ORDERED: ALBUTEROL (0.083%) 2.5MG/3ML NEB ONE (05:56)
[2020-11-07] MEDS ORDERED: IPRATROPIUM/ALBUTEROL 0.5-3(2.5)MG/3ML NEB ONE (05:56)
[2020-11-07] MEDS ORDERED: PROPOFOL 10MG/ML 100ML 100 ML IV ONE (06:00)
[2020-11-07] MEDS ORDERED: MAGNESIUM 2 G PREMIX 50 ML IV ONE (06:00)
[2020-11-07] MEDS ORDERED: ALBUTEROL (0.083%) 2.5MG/3ML NEB HHN SCH (06:00)
[2020-11-07] MEDS ORDERED: MIDAZOLAM HCL 50 MG in DEXTROSE 5% WATER 40 ML IV ONE (06:00)
[2020-11-07 06:24] LABS: BG BASE EXCESS -1.7 mmol/L (-2.0-2.0); BG CARBOXYHEMOGLOBIN 0.2 % (0.5-1.5); BG DEOXYHEMOGLOBIN 0.4 % (0.0-5.0); BG FRACTION INSPIRED OXYGEN 100; BG HCO3 ACT 25.5 mmol/L (22.0-26.0); BG METHEMOGLOBIN 0.2 % (0.0-1.5); BG OXYGEN SATURATION 99.6 % (92.0-98.5); BG OXYHEMOGLOBIN 99.2 % (94.0-97.0); BG PCO2 54.6 mmHg (35.0-45.0); BG PH 7.287 (7.350-7.450); BG PO2 338.8 mmHg (75.0-100.0); BG SAMPLE SITE RIGHT BRACHIAL; BG TOTAL HEMOGLOBIN 11.2 g/dL (12.0-18.0); BG TOTAL RESPIRATORY RATE 22 b/min; BG VENT MODE VENT - AC
[2020-11-07 06:29] LABS: BASOPHILS % 0.5 % (0.0-2.0); CHLORIDE 105 mEq/L (98-107); EOSINOPHILS % 0.6 % (0.0-5.0); HEMATOCRIT. 31.5 % (36.0-48.0); HEMOGLOBIN. 10.1 g/dL (12.0-16.0); LYMPHOCYTES % 11.9 % (20.0-50.0); MEAN CORPUSCULAR HEMOGLOBIN 27.2 pg (28.0-32.0); MEAN CORPUSCULAR VOLUME 85.1 fL (81.0-99.0); MEAN PLATELET VOLUME 7.5 fl (7.4-10.4); MONOCYTES % 5.1 % (2.0-8.0); NEUTROPHILS % 81.9 % (40.0-76.0); PLATELET 526 x1000/uL (130-400); RED BLOOD CELL COUNT 3.71 mill/uL (4.2-5.4); RED CELL DISTRIBUTION WIDTH 15.7 % (11.6-14.6)
[2020-11-07] MEDS ORDERED: MIDAZOLAM HCL 100 MG in SODIUM CHLORIDE 0.9% 100 ML IV PRN (06:30)
[2020-11-07] MEDS ORDERED: SODIUM CHLORIDE 0.9% 10ML VIAL ONE (09:24)
[2020-11-07] MEDS ORDERED: VECURONIUM BROMIDE 10 MG/VIAL IV ONE (09:24)
[2020-11-07] MEDS ORDERED: ETOMIDATE 2MG/ML 10ML VIAL IV ONE ×2 (09:24→10:17)
[2020-11-07] MEDS ORDERED: FENTANYL CITRATE/PF 1,000 MCG in SODIUM CHLORIDE 0.9% 80 ML IV PRN (09:30)
[2020-11-07] MEDS ORDERED: DEXTROSE 50% WATER 50ML SYRINGE IV PRN (09:45)
[2020-11-07] MEDS: PROPOFOL 10MG/ML 100ML 100 ML IV PRN ×3 (09:48→21:07)
[2020-11-07] MEDS ORDERED: SUCCINYLCHOLINE CHLORIDE 200MG/10ML IV ONE (10:17)
[2020-11-07] MEDS ORDERED: INSULIN GLARGINE UD 100 UNITS/ML SYR SUBCUT NR (11:00)
[2020-11-07 11:04] LABS: BG BASE EXCESS -0.6 mmol/L (-2.0-2.0); BG CARBOXYHEMOGLOBIN 0.3 % (0.5-1.5); BG FRACTION INSPIRED OXYGEN 50; BG HCO3 ACT 24.5 mmol/L (22.0-26.0); BG METHEMOGLOBIN 0.1 % (0.0-1.5); BG OXYHEMOGLOBIN 91.6 % (94.0-97.0); BG PCO2 42.3 mmHg (35.0-45.0); BG PH 7.381 (7.350-7.450); BG PO2 64.5 mmHg (75.0-100.0); BG SAMPLE SITE RIGHT RADIAL; BG TOTAL RESPIRATORY RATE 26 b/min; BG VENT MODE VENT- PRVC
[2020-11-07] MEDS: BLOOD SUGAR DIAGNOSTIC STRIP TEST SCH ×2 (11:30→17:03)
[2020-11-07] MEDS: INSULIN LISPRO 100 UNITS/ML SUBCUT SCH ×2 (14:26→17:23)
[2020-11-07] MEDS: FENTANYL CITRATE 2,500 MCG in SODIUM CHLORIDE 0.9% 200 ML IV PRN (16:15)
[2020-11-07] MEDS: ENOXAPARIN 30MG/0.3ML SYR SUBCUT SCH (17:22)
[2020-11-07] MEDS: AZITHROMYCIN 500 MG TABLET PO SCH (17:23)
[2020-11-07] MEDS ORDERED: NOREPINEPHRINE 8MG/250ML PMX 250 ML IV PRN (18:15)
[2020-11-07] MEDS ORDERED: NOREPINEPHRINE 8 MG in DEXTROSE 5% WATER 250 ML IV PRN (18:15)
[2020-11-07] MEDS ORDERED: SODIUM CHLORIDE 0.9% 500 ML IV SCH (18:15)
[2020-11-07] MEDS ORDERED: ALBU6.7H9 INH (18:37)
[2020-11-07] MEDS: IPRATROPIUM/ALBUTEROL 0.5-3(2.5)MG/3ML NEB HHN SCH (20:10)
[2020-11-07] MEDS ORDERED: INSULIN GLARGINE UD 100 UNITS/ML SYR SUBCUT SCH (22:00)
[2020-11-07] MEDS: METHYLPREDNISOLONE SOD SUCC 125 MG/2 ML VIAL IV SCH (22:33)
[2020-11-07] MEDS: PIPERACILLIN/TAZOBACTAM 3.375 G in DEXTROSE 5% WATER 50 ML IV SCH (22:34)
[2020-11-07] MEDS: INSULIN GLARGINE UD 100 UNITS/ML SYR SUBCUT SCH (22:50)
[2020-11-08] VITALS (111 sets, daily range): BP systolic 81–222; BP diastolic 45–156
[2020-11-08] MEDS: IPRATROPIUM/ALBUTEROL 0.5-3(2.5)MG/3ML NEB HHN SCH ×6 (00:19→20:05)
[2020-11-08] MEDS: PROPOFOL 10MG/ML 100ML 100 ML IV PRN ×5 (03:40→20:33)
[2020-11-08 05:10] LABS: BG CARBOXYHEMOGLOBIN 0.2 % (0.5-1.5); BG DEOXYHEMOGLOBIN 1.4 % (0.0-5.0); BG FRACTION INSPIRED OXYGEN 100; BG HCO3 ACT 22.1 mmol/L (22.0-26.0); BG METHEMOGLOBIN 0.3 % (0.0-1.5); BG OXYGEN SATURATION 98.6 % (92.0-98.5); BG OXYHEMOGLOBIN 98.1 % (94.0-97.0); BG PCO2 39.8 mmHg (35.0-45.0); BG PH 7.362 (7.350-7.450); BG PO2 138.5 mmHg (75.0-100.0); BG SAMPLE SITE LEFT BRACHIAL; BG VENT MODE MASK - NRB
[2020-11-08] MEDS ORDERED: LORAZEPAM 2MG/ML CPJ IV PRN (05:45)
[2020-11-08 06:14] LABS: CHLORIDE 105 mEq/L (98-107)
[2020-11-08 06:24] LABS: BASOPHILS % 0.3 % (0.0-2.0); HEMOGLOBIN. 10.8 g/dL (12.0-16.0); LYMPHOCYTES % 8.5 % (20.0-50.0); MEAN CORPUSCULAR HEMOGLOBIN 26.6 pg (28.0-32.0); MEAN CORPUSCULAR VOLUME 83.5 fL (81.0-99.0); MEAN PLATELET VOLUME 8.3 fl (7.4-10.4); MONOCYTES % 2.6 % (2.0-8.0); NEUTROPHILS % 88.6 % (40.0-76.0); PLATELET 483 x1000/uL (130-400); RED BLOOD CELL COUNT 4.07 mill/uL (4.2-5.4); RED CELL DISTRIBUTION WIDTH 15.8 % (11.6-14.6)
[2020-11-08] MEDS: ENOXAPARIN 30MG/0.3ML SYR SUBCUT SCH ×2 (06:39→17:33)
[2020-11-08] MEDS: METHYLPREDNISOLONE SOD SUCC 125 MG/2 ML VIAL IV SCH ×3 (06:39→22:25)
[2020-11-08] MEDS: BLOOD SUGAR DIAGNOSTIC STRIP TEST SCH ×4 (06:40→17:33)
[2020-11-08] MEDS: INSULIN LISPRO 100 UNITS/ML SUBCUT SCH ×4 (06:40→17:32)
[2020-11-08 08:18] LABS: BG BASE EXCESS -3.4 mmol/L (-2.0-2.0); BG CARBOXYHEMOGLOBIN 0.3 % (0.5-1.5); BG DEOXYHEMOGLOBIN 5.8 % (0.0-5.0); BG HCO3 ACT 21.6 mmol/L (22.0-26.0); BG METHEMOGLOBIN 0.3 % (0.0-1.5); BG OXYGEN SATURATION 94.2 % (92.0-98.5); BG OXYHEMOGLOBIN 93.6 % (94.0-97.0); BG PCO2 38.9 mmHg (35.0-45.0); BG PH 7.363 (7.350-7.450); BG PO2 73.2 mmHg (75.0-100.0); BG SAMPLE SITE RIGHT BRACHIAL; BG TOTAL HEMOGLOBIN 10.6 g/dL (12.0-18.0); BG VENT MODE VENT- PRVC
[2020-11-08] MEDS: PIPERACILLIN/TAZOBACTAM 3.375 G in DEXTROSE 5% WATER 50 ML IV SCH ×3 (08:45→22:25)
[2020-11-08] MEDS: AZITHROMYCIN 500 MG TABLET PO SCH (08:47)
[2020-11-08] MEDS: PANTOPRAZOLE SODIUM 40 MG/VIAL IV SCH (08:47)
[2020-11-08] MEDS: INSULIN GLARGINE UD 100 UNITS/ML SYR SUBCUT SCH ×2 (09:15→22:28)
[2020-11-08] MEDS ORDERED: LIDOCAINE HCL 1% 20ML VIAL (Pyxis) INJ ONE ×2 (10:02→13:43)
[2020-11-08] MEDS ORDERED: IOHEXOL-350 100 ML BOTTLE ONE (10:36)
[2020-11-08] MEDS ORDERED: FUROSEMIDE 100MG/10ML VIAL IVP NR (10:45)
[2020-11-08] MEDS: FENTANYL CITRATE 2,500 MCG in SODIUM CHLORIDE 0.9% 200 ML IV PRN (12:53)
[2020-11-09] VITALS (50 sets, daily range): BP systolic 95–169; BP diastolic 50–113
[2020-11-09] MEDS: BLOOD SUGAR DIAGNOSTIC STRIP TEST SCH ×4 (00:05→17:59)
[2020-11-09] MEDS: PROPOFOL 10MG/ML 100ML 100 ML IV PRN ×3 (00:09→06:59)
[2020-11-09] MEDS: INSULIN LISPRO 100 UNITS/ML SUBCUT SCH ×4 (00:09→17:59)
[2020-11-09] MEDS: IPRATROPIUM/ALBUTEROL 0.5-3(2.5)MG/3ML NEB HHN SCH ×6 (00:10→20:08)
[2020-11-09] MEDS: FENTANYL CITRATE 2,500 MCG in SODIUM CHLORIDE 0.9% 200 ML IV PRN (01:41)
[2020-11-09] MEDS: ENOXAPARIN 30MG/0.3ML SYR SUBCUT SCH ×2 (05:11→18:06)
[2020-11-09] MEDS: PIPERACILLIN/TAZOBACTAM 3.375 G in DEXTROSE 5% WATER 50 ML IV SCH ×3 (05:11→21:43)
[2020-11-09] MEDS: METHYLPREDNISOLONE SOD SUCC 125 MG/2 ML VIAL IV SCH ×3 (05:11→21:44)
[2020-11-09 06:55] LABS: BASOPHILS % 0.2 % (0.0-2.0); HEMATOCRIT. 27.7 % (36.0-48.0); HEMOGLOBIN. 9.4 g/dL (12.0-16.0); LYMPHOCYTES % 12.3 % (20.0-50.0); MEAN CORPUSCULAR HEMOGLOBIN 27.9 pg (28.0-32.0); MEAN CORPUSCULAR VOLUME 82.1 fL (81.0-99.0); MEAN PLATELET VOLUME 7.4 fl (7.4-10.4); MONOCYTES % 4.3 % (2.0-8.0); NEUTROPHILS % 83.2 % (40.0-76.0); PLATELET 468 x1000/uL (130-400); RED BLOOD CELL COUNT 3.37 mill/uL (4.2-5.4); RED CELL DISTRIBUTION WIDTH 15.7 % (11.6-14.6)
[2020-11-09 07:00] LABS: CHLORIDE 106 mEq/L (98-107)
[2020-11-09] MEDS: AZITHROMYCIN 500 MG TABLET PO SCH (08:26)
[2020-11-09] MEDS: PANTOPRAZOLE SODIUM 40 MG/VIAL IV SCH (08:26)
[2020-11-09] MEDS: INSULIN GLARGINE UD 100 UNITS/ML SYR SUBCUT SCH ×2 (09:43→22:02)
[2020-11-09 10:04] LABS: BG BASE EXCESS 0.7 mmol/L (-2.0-2.0); BG CARBOXYHEMOGLOBIN 0.3 % (0.5-1.5); BG DEOXYHEMOGLOBIN 0.9 % (0.0-5.0); BG FRACTION INSPIRED OXYGEN 50; BG HCO3 ACT 22.1 mmol/L (22.0-26.0); BG METHEMOGLOBIN 0.2 % (0.0-1.5); BG OXYGEN SATURATION 99.1 % (92.0-98.5); BG OXYHEMOGLOBIN 98.6 % (94.0-97.0); BG PCO2 25.4 mmHg (35.0-45.0); BG PH 7.558 (7.350-7.450); BG PO2 192.2 mmHg (75.0-100.0); BG SAMPLE SITE RIGHT RADIAL; BG TOTAL HEMOGLOBIN 9.8 g/dL (12.0-18.0); BG VENT MODE VENT - PRVC
[2020-11-09] MEDS: METOPROLOL TARTRATE 50MG TABLET PO SCH (21:43)
[2020-11-10] VITALS (45 sets, daily range): BP systolic 137–174; BP diastolic 60–156
[2020-11-10] MEDS: IPRATROPIUM/ALBUTEROL 0.5-3(2.5)MG/3ML NEB HHN SCH ×6 (00:13→20:50)
[2020-11-10] MEDS: INSULIN LISPRO 100 UNITS/ML SUBCUT SCH ×4 (06:00→17:04)
[2020-11-10] MEDS: PIPERACILLIN/TAZOBACTAM 3.375 G in DEXTROSE 5% WATER 50 ML IV SCH ×3 (06:32→22:39)
[2020-11-10] MEDS: METHYLPREDNISOLONE SOD SUCC 125 MG/2 ML VIAL IV SCH ×3 (06:33→22:39)
[2020-11-10] MEDS: BLOOD SUGAR DIAGNOSTIC STRIP TEST SCH ×4 (06:33→17:05)
[2020-11-10] MEDS: ENOXAPARIN 30MG/0.3ML SYR SUBCUT SCH ×2 (06:33→17:34)
[2020-11-10 06:49] LABS: BASOPHILS % 0.9 % (0.0-2.0); EOSINOPHILS % 2.5 % (0.0-5.0); HEMATOCRIT. 29.7 % (36.0-48.0); HEMOGLOBIN. 9.8 g/dL (12.0-16.0); LYMPHOCYTES % 10.9 % (20.0-50.0); MEAN CORPUSCULAR HEMOGLOBIN 27.2 pg (28.0-32.0); MEAN CORPUSCULAR VOLUME 82.6 fL (81.0-99.0); MEAN PLATELET VOLUME 7.4 fl (7.4-10.4); MONOCYTES % 5.5 % (2.0-8.0); NEUTROPHILS % 80.2 % (40.0-76.0); PLATELET 484 x1000/uL (130-400); RED BLOOD CELL COUNT 3.59 mill/uL (4.2-5.4); RED CELL DISTRIBUTION WIDTH 15.8 % (11.6-14.6)
[2020-11-10 07:04] LABS: CHLORIDE 107 mEq/L (98-107)
[2020-11-10 08:30] LABS: BG BASE EXCESS 2.2 mmol/L (-2.0-2.0); BG CARBOXYHEMOGLOBIN 0.1 % (0.5-1.5); BG DEOXYHEMOGLOBIN 2.7 % (0.0-5.0); BG FRACTION INSPIRED OXYGEN 40; BG HCO3 ACT 26.7 mmol/L (22.0-26.0); BG OXYGEN SATURATION 97.3 % (92.0-98.5); BG OXYHEMOGLOBIN 97.2 % (94.0-97.0); BG PCO2 41.2 mmHg (35.0-45.0); BG PH 7.429 (7.350-7.450); BG PO2 103.4 mmHg (75.0-100.0); BG SAMPLE SITE LEFT BRACHIAL; BG TOTAL RESPIRATORY RATE 18 b/min; BG VENT MODE VENT - AC
[2020-11-10] MEDS: PANTOPRAZOLE SODIUM 40 MG/VIAL IV SCH (10:01)
[2020-11-10] MEDS: AZITHROMYCIN 500 MG TABLET PO SCH (10:01)
[2020-11-10] MEDS: METOPROLOL TARTRATE 50MG TABLET PO SCH ×2 (10:01→21:14)
[2020-11-10] MEDS: FUROSEMIDE 40MG/4ML VIAL IVP SCH (10:01)
[2020-11-10] MEDS: INSULIN GLARGINE UD 100 UNITS/ML SYR SUBCUT SCH ×2 (10:02→22:41)
[2020-11-10 12:23] LABS: BG BASE EXCESS 4.2 mmol/L (-2.0-2.0); BG CARBOXYHEMOGLOBIN 0.2 % (0.5-1.5); BG DEOXYHEMOGLOBIN 2.9 % (0.0-5.0); BG HCO3 ACT 29.3 mmol/L (22.0-26.0); BG METHEMOGLOBIN 0.1 % (0.0-1.5); BG OXYGEN SATURATION 97.1 % (92.0-98.5); BG OXYHEMOGLOBIN 96.8 % (94.0-97.0); BG PH 7.422 (7.350-7.450); BG PO2 96.3 mmHg (75.0-100.0); BG SAMPLE SITE RIGHT RADIAL; BG TOTAL HEMOGLOBIN 12.4 g/dL (12.0-18.0); BG VENT MODE VENT - CPAP
[2020-11-11] VITALS (48 sets, daily range): BP systolic 128–180; BP diastolic 48–115
[2020-11-11] MEDS: IPRATROPIUM/ALBUTEROL 0.5-3(2.5)MG/3ML NEB HHN SCH ×5 (00:27→16:32)
[2020-11-11] MEDS: BLOOD SUGAR DIAGNOSTIC STRIP TEST SCH ×5 (00:29→23:25)
[2020-11-11] MEDS: INSULIN LISPRO 100 UNITS/ML SUBCUT SCH ×5 (06:00→23:37)
[2020-11-11 06:15] LABS: BASOPHILS % 0.2 % (0.0-2.0); HEMATOCRIT. 30.9 % (36.0-48.0); HEMOGLOBIN. 10.3 g/dL (12.0-16.0); LYMPHOCYTES % 11.1 % (20.0-50.0); MEAN CORPUSCULAR HEMOGLOBIN 27.9 pg (28.0-32.0); MEAN CORPUSCULAR VOLUME 83.2 fL (81.0-99.0); MONOCYTES % 4.1 % (2.0-8.0); NEUTROPHILS % 84.6 % (40.0-76.0); PLATELET 495 x1000/uL (130-400); RED BLOOD CELL COUNT 3.71 mill/uL (4.2-5.4); RED CELL DISTRIBUTION WIDTH 15.7 % (11.6-14.6)
[2020-11-11 06:24] LABS: CHLORIDE 106 mEq/L (98-107)
[2020-11-11] MEDS: METHYLPREDNISOLONE SOD SUCC 125 MG/2 ML VIAL IV SCH ×3 (06:44→23:25)
[2020-11-11] MEDS: PIPERACILLIN/TAZOBACTAM 3.375 G in DEXTROSE 5% WATER 50 ML IV SCH ×3 (06:44→21:04)
[2020-11-11] MEDS: ENOXAPARIN 30MG/0.3ML SYR SUBCUT SCH ×2 (06:45→17:05)
[2020-11-11] MEDS: PANTOPRAZOLE SODIUM 40 MG/VIAL IV SCH (09:09)
[2020-11-11] MEDS: METOPROLOL TARTRATE 50MG TABLET PO SCH (09:09)
[2020-11-11] MEDS: FUROSEMIDE 40MG/4ML VIAL IVP SCH (09:09)
[2020-11-11] MEDS: AZITHROMYCIN 500 MG TABLET PO SCH (09:09)
[2020-11-11] MEDS: INSULIN GLARGINE UD 100 UNITS/ML SYR SUBCUT SCH ×2 (09:13→21:13)
[2020-11-11] MEDS: AMLODIPINE 10MG TABLET PO SCH (11:34)
[2020-11-11] MEDS: CLONIDINE 0.1MG TABLET PO PRN (21:04)
[2020-11-11] MEDS ORDERED: NALOXONE HCL 0.4MG/ML VIAL IV PRN (21:30)
[2020-11-11] MEDS: HYDROCODONE/ACETAMINOPHEN 10/325MG TABLET PO PRN (21:46)
[2020-11-12] VITALS: BP 169/81
[2020-11-12] MEDS: IPRATROPIUM/ALBUTEROL 0.5-3(2.5)MG/3ML NEB HHN SCH ×4 (01:05→20:48)
[2020-11-12 04:00] VITALS: BP 140/68
[2020-11-12] MEDS: PIPERACILLIN/TAZOBACTAM 3.375 G in DEXTROSE 5% WATER 50 ML IV SCH (05:32)
[2020-11-12] MEDS: BLOOD SUGAR DIAGNOSTIC STRIP TEST SCH ×3 (05:33→17:48)
[2020-11-12] MEDS: ENOXAPARIN 30MG/0.3ML SYR SUBCUT SCH ×2 (05:33→17:48)
[2020-11-12] MEDS: INSULIN LISPRO 100 UNITS/ML SUBCUT SCH ×3 (05:56→17:58)
[2020-11-12 06:05] LABS: CHLORIDE 105 mEq/L (98-107)
[2020-11-12 06:09] LABS: BASOPHILS % 0.2 % (0.0-2.0); HEMATOCRIT. 37.1 % (36.0-48.0); HEMOGLOBIN. 11.6 g/dL (12.0-16.0); LYMPHOCYTES % 13.9 % (20.0-50.0); MEAN CORPUSCULAR HEMOGLOBIN 26.7 pg (28.0-32.0); MEAN PLATELET VOLUME 8.3 fl (7.4-10.4); MONOCYTES % 7.4 % (2.0-8.0); NEUTROPHILS % 78.5 % (40.0-76.0); PLATELET 496 x1000/uL (130-400); RED BLOOD CELL COUNT 4.36 mill/uL (4.2-5.4); RED CELL DISTRIBUTION WIDTH 15.6 % (11.6-14.6)
[2020-11-12 08:00] VITALS: BP 159/75
[2020-11-12] MEDS: FUROSEMIDE 40MG/4ML VIAL IVP SCH (08:53)
[2020-11-12] MEDS: METHYLPREDNISOLONE SOD SUCC 125 MG/2 ML VIAL IV SCH (08:53)
[2020-11-12] MEDS: AMLODIPINE 10MG TABLET PO SCH (09:02)
[2020-11-12] MEDS: PANTOPRAZOLE SODIUM 40 MG/VIAL IV SCH (09:02)
[2020-11-12] MEDS: INSULIN GLARGINE UD 100 UNITS/ML SYR SUBCUT SCH ×2 (09:25→22:40)
[2020-11-12 12:00] VITALS: BP 161/82
[2020-11-12 16:00] VITALS: BP 167/77
[2020-11-12 18:40] LABS: BG BASE EXCESS 4.5 mmol/L (-2.0-2.0); BG CARBOXYHEMOGLOBIN 0.6 % (0.5-1.5); BG DEOXYHEMOGLOBIN 4.9 % (0.0-5.0); BG FRACTION INSPIRED OXYGEN 21; BG HCO3 ACT 29.3 mmol/L (22.0-26.0); BG METHEMOGLOBIN 0.1 % (0.0-1.5); BG OXYGEN SATURATION 95.1 % (92.0-98.5); BG OXYHEMOGLOBIN 94.4 % (94.0-97.0); BG PCO2 44.6 mmHg (35.0-45.0); BG PH 7.436 (7.350-7.450); BG PO2 73.8 mmHg (75.0-100.0); BG SAMPLE SITE RIGHT RADIAL; BG TOTAL HEMOGLOBIN 12.7 g/dL (12.0-18.0); BG VENT MODE ROOM AIR
[2020-11-12 20:00] VITALS: BP 163/79
[2020-11-12] MEDS: HYDROCODONE/ACETAMINOPHEN 10/325MG TABLET PO PRN (21:04)
[2020-11-12] MEDS: CLONIDINE 0.1MG TABLET PO PRN (21:05)
[2020-11-13] VITALS: BP 163/74
[2020-11-13] MEDS ORDERED: HYDRALAZINE 20MG/ML VIAL IV PRN (00:45)
[2020-11-13 04:00] VITALS: BP 145/70
[2020-11-13] MEDS: ENOXAPARIN 30MG/0.3ML SYR SUBCUT SCH (05:19)
[2020-11-13] MEDS: BLOOD SUGAR DIAGNOSTIC STRIP TEST SCH ×3 (05:20→12:35)
[2020-11-13] MEDS: INSULIN LISPRO 100 UNITS/ML SUBCUT SCH ×3 (05:20→12:35)
[2020-11-13 08:00] VITALS: BP 160/68
[2020-11-13] MEDS: AMLODIPINE 10MG TABLET PO SCH (08:35)
[2020-11-13] MEDS: FUROSEMIDE 40MG/4ML VIAL IVP SCH (08:35)
[2020-11-13] MEDS ORDERED: METHYLPREDNISOLONE SOD SUCC 40 MG/ML VIAL IV SCH (09:00)
[2020-11-13] MEDS ORDERED: FAMOTIDINE 20MG/2ML VIAL IV SCH (09:00)
[2020-11-13] MEDS: IPRATROPIUM/ALBUTEROL 0.5-3(2.5)MG/3ML NEB HHN SCH (09:28)
[2020-11-13] MEDS: INSULIN GLARGINE UD 100 UNITS/ML SYR SUBCUT SCH (10:18)
[2020-11-13] MEDS ORDERED: FURO-151 MT (11:28)
[2020-11-13] MEDS ORDERED: IPRA3AMP9 NEB (11:28)
[2020-11-13] MEDS ORDERED: P20 MT (11:28)
[2020-11-13 12:01] VITALS: BP 135/63
[2020-11-13 14:16] VITALS: BP 135/63
== END 2020-11-13 15:35 | disposition home health service (06) | DRG 208 ==
LOC: ER 05:49 → MICUSO 05:58 → CVICU 11-09 02:00 → 6WST 11-11 22:05
PROVIDERS: ADMIT Internal Medicine; ATTEND Internal Medicine
PROC: 5A1945Z Respiratory Ventilation, 24-96 Consecutive Hours (ICD-10-PCS; 2020-11-07)
PROC: 06HY33Z Insertion of Infusion Device into Lower Vein, Percutaneous Approach (ICD-10-PCS; 2020-11-07)
PROC: B54BZZA Ultrasonography of Right Lower Extremity Veins, Guidance (ICD-10-PCS; 2020-11-07)
PROC: 0BH17EZ Insertion of Endotracheal Airway into Trachea, Via Natural or Artificial Opening (ICD-10-PCS; 2020-11-07)
PROC: 02HV33Z Insertion of Infusion Device into Superior Vena Cava, Percutaneous Approach (ICD-10-PCS; principal; 2020-11-08)
PROC: B548ZZA Ultrasonography of Superior Vena Cava, Guidance (ICD-10-PCS; 2020-11-08)
DX: J96.02 Acute respiratory failure with hypercapnia (principal); J18.9 Pneumonia, unspecified organism; I50.33 Acute on chronic diastolic (congestive) heart failure; E44.0 Moderate protein-calorie malnutrition; I42.9 Cardiomyopathy, unspecified; J44.0 Chronic obstructive pulmonary disease with (acute) lower respiratory infection; J96.01 Acute respiratory failure with hypoxia; D64.9 Anemia, unspecified; E11.65 Type 2 diabetes mellitus with hyperglycemia; I27.20 Pulmonary hypertension, unspecified; R74.01 Elevation of levels of liver transaminase levels; I11.0 Hypertensive heart disease with heart failure; Z82.49 Family history of ischemic heart disease and other diseases of the circulatory system; Z68.38 Body mass index [BMI] 38.0-38.9, adult
CPT/HCPCS: 36415; 36600; 71045; 71275; 76937; 80048; 80053; 82375; 82805; 82962; 83605; 83735; 83880; 84478; 84484; 85025; 85379; 87070; 87426; 93005; 93306; 93970; 94002; 94003; 94640; 97162; 99291; C1725; C9113; J0330; J0360; J1650; J1815; J1940; J2250; J2543; J2704; J2920; J2930; J3010; J3475; J3490; J7040; J7050; J7060; Q9967; U0003; U0005

== ENCOUNTER 2020-12-02 02:16 | Inpatient (IN) | payer MEDICARE, MEDICAID ==
[~2020-12-02] VITALS: Ht 165.1 cm; Wt 97.5 kg
[~2020-12-02 02:16] MED LIST changes: +ALBU6.7H9 INH; +FURO-151 MT; -LEVO500T89 MT
[2020-12-02] MEDS ORDERED: METHYLPREDNISOLONE SOD SUCC 125 MG/2 ML VIAL IV STA (02:32)
[2020-12-02] MEDS ORDERED: IPRATROPIUM BROMIDE (0.02%) 0.5MG/2.5ML NEB HHN STA (02:32)
[2020-12-02] MEDS ORDERED: ALBUTEROL (0.083%) 2.5MG/3ML NEB HHN STA (02:32)
[2020-12-02] MEDS ORDERED: PROPOFOL 10MG/ML 100ML 100 ML IV ONE ×2 (02:45→06:45)
[2020-12-02 03:00] LABS: BASOPHILS % 1.1 % (0.0-2.0); HEMATOCRIT. 37.8 % (36.0-48.0); LYMPHOCYTES % 21.7 % (20.0-50.0); MEAN CORPUSCULAR VOLUME 85.3 fL (81.0-99.0); MEAN PLATELET VOLUME 7.4 fl (7.4-10.4); MONOCYTES % 5.4 % (2.0-8.0); NEUTROPHILS % 70.8 % (40.0-76.0); PLATELET 474 x1000/uL (130-400); RED BLOOD CELL COUNT 4.43 mill/uL (4.2-5.4); RED CELL DISTRIBUTION WIDTH 16.3 % (11.6-14.6)
[2020-12-02 03:05] LABS: CHLORIDE 101 mEq/L (98-107)
[2020-12-02 03:24] LABS: BG BASE EXCESS -1.7 mmol/L (-2.0-2.0); BG CARBOXYHEMOGLOBIN 0.8 % (0.5-1.5); BG FRACTION INSPIRED OXYGEN 100; BG METHEMOGLOBIN 0.2 % (0.0-1.5); BG OXYGEN SATURATION 81.8 % (92.0-98.5); BG PCO2 73.5 mmHg (35.0-45.0); BG PH 7.198 (7.350-7.450); BG PO2 57.2 mmHg (75.0-100.0); BG SAMPLE SITE RIGHT RADIAL; BG TOTAL HEMOGLOBIN 12.9 g/dL (12.0-18.0); BG VENT MODE VENT - AC
[2020-12-02] MEDS ORDERED: MIDAZOLAM HCL 100 MG in DEXT 5% WATER 80 ML IV STA (04:08)
[2020-12-02] MEDS ORDERED: SODIUM CHLORIDE 0.9% 1,000 ML IV ONE (04:30)
[2020-12-02] MEDS ORDERED: AZITHROMYCIN 500MG/250ML 250 ML IV ONE (04:30)
[2020-12-02] MEDS ORDERED: CEFTRIAXONE 1 G PREMIX 50 ML IV ONE (04:30)
[2020-12-02] MEDS ORDERED: ONDANSETRON HCL 4MG/2ML INJ IV PRN (07:30)
[2020-12-02] MEDS ORDERED: DOCUSATE SODIUM 100MG CAPSULE PO PRN (07:30)
[2020-12-02] MEDS ORDERED: HYDROCODONE/ACETAMINOPHEN 5/325MG TABLET PO PRN (07:30)
[2020-12-02] MEDS ORDERED: LORAZEPAM 2MG/ML CPJ IV PRN (07:30)
[2020-12-02] MEDS ORDERED: MORPHINE SULFATE 2 MG/ML CPJ (NOT FOR IM USE) IV PRN (07:30)
[2020-12-02] MEDS ORDERED: MAGNESIUM/ALUMINUM HYDROXIDE/SIMETHICONE 30ML UDC PO PRN (07:30)
[2020-12-02] MEDS ORDERED: ENOXAPARIN 40MG/0.4ML SYR SUBCUT SCH (07:30)
[2020-12-02] MEDS ORDERED: IPRATROPIUM/ALBUTEROL 0.5-3(2.5)MG/3ML NEB HHN PRN ×2 (07:30→13:00)
[2020-12-02] MEDS ORDERED: GUAIFENESIN 200MG/10ML SUGAR FREE UDC PO PRN (07:30)
[2020-12-02] MEDS ORDERED: NALOXONE HCL 0.4MG/ML VIAL IV PRN (07:45)
[2020-12-02] MEDS ORDERED: ETOMIDATE 2MG/ML 10ML VIAL IV ONE (08:09)
[2020-12-02] MEDS ORDERED: SODIUM CHLORIDE 0.9% 10ML VIAL ONE (08:09)
[2020-12-02] MEDS ORDERED: VECURONIUM BROMIDE 10 MG/VIAL IV ONE (08:09)
[2020-12-02] MEDS: ENOXAPARIN 30MG/0.3ML SYR SUBCUT SCH ×2 (10:32→21:00)
[2020-12-02 10:51] LABS: BG BASE EXCESS 0.9 mmol/L (-2.0-2.0); BG CARBOXYHEMOGLOBIN 0.2 % (0.5-1.5); BG DEOXYHEMOGLOBIN 3.1 % (0.0-5.0); BG FRACTION INSPIRED OXYGEN 100; BG METHEMOGLOBIN 0.3 % (0.0-1.5); BG OXYGEN SATURATION 96.9 % (92.0-98.5); BG OXYHEMOGLOBIN 96.4 % (94.0-97.0); BG PCO2 49.5 mmHg (35.0-45.0); BG PH 7.354 (7.350-7.450); BG PO2 93.2 mmHg (75.0-100.0); BG SAMPLE SITE LEFT RADIAL; BG VENT MODE VENT - AC
[2020-12-02] MEDS: PROPOFOL 10MG/ML 100ML 100 ML IV PRN ×3 (10:53→19:08)
[2020-12-02] MEDS: FENTANYL CITRATE/PF 2,500 MCG in SODIUM CHLORIDE 0.9% 200 ML IV PRN (10:55)
[2020-12-02 11:27] LABS: T4 FREE 1.16 ng/dL (0.76-1.46)
[2020-12-02] MEDS ORDERED: FUROSEMIDE 100MG/10ML VIAL IVP SCH (13:00)
[2020-12-02] MEDS: SODIUM CHLORIDE 0.9% INJ 3ML FLUSH IVF SCH ×2 (13:26→22:05)
[2020-12-02] MEDS: IPRATROPIUM/ALBUTEROL 0.5-3(2.5)MG/3ML NEB HHN SCH ×2 (13:47→20:53)
[2020-12-02] MEDS: METHYLPREDNISOLONE SOD SUCC 40 MG/ML VIAL IV SCH ×2 (14:00→22:04)
[2020-12-02 15:46] LABS: CREATINE KINASE MB FRACTION 14.1 ng/mL (0.5-3.6)
[2020-12-02] MEDS ORDERED: DOCUSATE SODIUM SUGAR FREE 100MG/10ML UDC NG SCH (17:00)
[2020-12-02] MEDS: DOCUSATE SODIUM 100MG CAPSULE PO SCH (18:27)
[2020-12-02] MEDS: FUROSEMIDE 40MG/4ML VIAL IVP SCH (20:58)
[2020-12-02 22:56] LABS: CREATINE KINASE MB FRACTION 41.8 ng/mL (0.5-3.6)
[2020-12-03] VITALS (71 sets, daily range): BP systolic 99–209; BP diastolic 54–105
[2020-12-03] MEDS: IPRATROPIUM/ALBUTEROL 0.5-3(2.5)MG/3ML NEB HHN SCH ×4 (00:31→20:37)
[2020-12-03] MEDS ORDERED: MIDAZOLAM 100MG/100ML PREMIX IV PRN (02:15)
[2020-12-03] MEDS: SODIUM CHLORIDE 0.9% INJ 3ML FLUSH IVF SCH ×3 (05:44→21:05)
[2020-12-03] MEDS ORDERED: CEFTRIAXONE 1,000 MG in DEXTROSE 5% WATER 50 ML IV SCH (06:00)
[2020-12-03] MEDS: METHYLPREDNISOLONE SOD SUCC 40 MG/ML VIAL IV SCH (06:03)
[2020-12-03] MEDS: HYDRALAZINE 20MG/ML VIAL IV PRN (06:04)
[2020-12-03] MEDS: AZITHROMYCIN 500 MG in DEXT 5% WATER 250 ML IV SCH (06:49)
[2020-12-03] MEDS: FUROSEMIDE 40MG/4ML VIAL IVP SCH ×2 (08:41→17:01)
[2020-12-03] MEDS: DOCUSATE SODIUM 100MG CAPSULE PO SCH (08:45)
[2020-12-03] MEDS: ENOXAPARIN 30MG/0.3ML SYR SUBCUT SCH (08:45)
[2020-12-03 08:48] LABS: CHLORIDE 99 mEq/L (98-107)
[2020-12-03 09:12] LABS: HEMATOCRIT. 33.6 % (36.0-48.0); HEMOGLOBIN. 10.5 g/dL (12.0-16.0); MEAN CORPUSCULAR HEMOGLOBIN 26.8 pg (28.0-32.0); MEAN CORPUSCULAR VOLUME 85.5 fL (81.0-99.0); MEAN PLATELET VOLUME 7.7 fl (7.4-10.4); PLATELET 420 x1000/uL (130-400); RED BLOOD CELL COUNT 3.93 mill/uL (4.2-5.4); RED CELL DISTRIBUTION WIDTH 16.7 % (11.6-14.6)
[2020-12-03] MEDS ORDERED: LIDOCAINE HCL 1% 20ML VIAL (Pyxis) INJ ONE (09:29)
[2020-12-03] MEDS ORDERED: DEXTROSE 50% WATER 50ML SYRINGE IV PRN (09:45)
[2020-12-03 10:40] LABS: NUCLEATED RED BLOOD CELLS 1 /100 WBC; PLATELET ESTIMATE INCREASED
[2020-12-03] MEDS ORDERED: INSULIN GLARGINE UD 100 UNITS/ML SYR SUBCUT SCH (11:00)
[2020-12-03] MEDS: CEFEPIME 2,000 MG in DEXT 5% WATER 100 ML IV SCH ×2 (11:01→21:04)
[2020-12-03] MEDS ORDERED: BLOOD SUGAR DIAGNOSTIC STRIP TEST SCH (11:30)
[2020-12-03 11:39] LABS: BG BASE EXCESS 2.9 mmol/L (-2.0-2.0); BG CARBOXYHEMOGLOBIN 0.2 % (0.5-1.5); BG DEOXYHEMOGLOBIN 3.6 % (0.0-5.0); BG FRACTION INSPIRED OXYGEN 85; BG HCO3 ACT 28.1 mmol/L (22.0-26.0); BG OXYGEN SATURATION 96.4 % (92.0-98.5); BG OXYHEMOGLOBIN 96.2 % (94.0-97.0); BG PCO2 45.5 mmHg (35.0-45.0); BG PH 7.408 (7.350-7.450); BG PO2 86.8 mmHg (75.0-100.0); BG SAMPLE SITE RIGHT RADIAL; BG TOTAL HEMOGLOBIN 11.2 g/dL (12.0-18.0); BG VENT MODE VENT - AC
[2020-12-03 11:50] LABS: CLARITY URINE CLEAR (CLEAR); COLOR URINE YELLOW (YELLOW); KETONES URINE TRACE (NEGATIVE); LEUKOCYTE ESTERASE URINE NEGATIVE (NEGATIVE); NITRITE URINE NEGATIVE (NEGATIVE); OCCULT BLOOD URINE NEGATIVE (NEGATIVE); PROTEIN URINE NEGATIVE (NEGATIVE); SPECIFIC GRAVITY URINE 1.014 (1.005-1.030); UROBILINOGEN URINE 0.2 E.U./dL (0.2-1.0)
[2020-12-03] MEDS ORDERED: INSULIN LISPRO 100 UNITS/ML SUBCUT SCH (12:00)
[2020-12-03 12:16] LABS: *AMPHETAMINES SCREEN URINE NEGATIVE (NEGATIVE); *BARBITURATES SCREEN URINE NEGATIVE (NEGATIVE); *BENZODIAZEPINES SCREEN URINE PRESUMTIVE POSITIVE (NEGATIVE); CANNABINOID URINE SCREEN NEGATIVE (NEGATIVE); PHENCYCLIDINE URINE SCREEN NEGATIVE (NEGATIVE)
[2020-12-03 12:17] LABS: *COCAINE SCREEN URINE NEGATIVE (NEGATIVE); METHADONE URINE SCREEN NEGATIVE (NEGATIVE); OPIATES URINE SCREEN NEGATIVE (NEGATIVE)
[2020-12-03] MEDS ORDERED: METHYLPREDNISOLONE SOD SUCC 40 MG/ML VIAL IV SCH (17:00)
[2020-12-03] MEDS: DOCUSATE SODIUM SUGAR FREE 100MG/10ML UDC NG SCH (17:01)
[2020-12-03] MEDS: MIDAZOLAM HCL 100 MG in SODIUM CHLORIDE 0.9% 80 ML IV PRN (17:03)
[2020-12-03] MEDS: FENTANYL CITRATE/PF 2,500 MCG in SODIUM CHLORIDE 0.9% 200 ML IV PRN (17:04)
[2020-12-03] MEDS: INSULIN LISPRO 100 UNITS/ML SUBCUT SCH (17:07)
[2020-12-03] MEDS: BLOOD SUGAR DIAGNOSTIC STRIP TEST SCH (17:07)
[2020-12-03] MEDS: ENOXAPARIN 40MG/0.4ML SYR SUBCUT SCH (21:04)
[2020-12-04] VITALS (99 sets, daily range): BP systolic 106–209; BP diastolic 54–106
[2020-12-04] MEDS: BLOOD SUGAR DIAGNOSTIC STRIP TEST SCH ×4 (00:11→18:14)
[2020-12-04] MEDS: INSULIN LISPRO 100 UNITS/ML SUBCUT SCH ×4 (00:12→18:19)
[2020-12-04] MEDS: IPRATROPIUM/ALBUTEROL 0.5-3(2.5)MG/3ML NEB HHN SCH ×4 (00:23→20:49)
[2020-12-04] MEDS: HYDRALAZINE 20MG/ML VIAL IV PRN (00:27)
[2020-12-04] MEDS: CLONIDINE 0.1MG TABLET PO PRN ×2 (03:06→12:35)
[2020-12-04] MEDS: MIDAZOLAM HCL 100 MG in SODIUM CHLORIDE 0.9% 80 ML IV PRN ×2 (05:32→15:46)
[2020-12-04 05:57] LABS: BASOPHILS % 0.2 % (0.0-2.0); EOSINOPHILS % 0.2 % (0.0-5.0); HEMATOCRIT. 28.4 % (36.0-48.0); HEMOGLOBIN. 9.5 g/dL (12.0-16.0); LYMPHOCYTES % 23.2 % (20.0-50.0); MEAN CORPUSCULAR HEMOGLOBIN 27.8 pg (28.0-32.0); MEAN CORPUSCULAR VOLUME 83.2 fL (81.0-99.0); MONOCYTES % 6.7 % (2.0-8.0); NEUTROPHILS % 69.7 % (40.0-76.0); PLATELET 410 x1000/uL (130-400); RED BLOOD CELL COUNT 3.41 mill/uL (4.2-5.4); RED CELL DISTRIBUTION WIDTH 16.7 % (11.6-14.6)
[2020-12-04 06:02] LABS: CHLORIDE 104 mEq/L (98-107)
[2020-12-04] MEDS: SODIUM CHLORIDE 0.9% INJ 3ML FLUSH IVF SCH ×3 (06:24→21:12)
[2020-12-04] MEDS: AZITHROMYCIN 500 MG in DEXT 5% WATER 250 ML IV SCH (06:24)
[2020-12-04 08:33] LABS: BG BASE EXCESS 9.2 mmol/L (-2.0-2.0); BG DEOXYHEMOGLOBIN 0.4 % (0.0-5.0); BG HCO3 ACT 34.2 mmol/L (22.0-26.0); BG METHEMOGLOBIN 0.2 % (0.0-1.5); BG OXYGEN SATURATION 99.6 % (92.0-98.5); BG OXYHEMOGLOBIN 99.4 % (94.0-97.0); BG PCO2 49.3 mmHg (35.0-45.0); BG PH 7.459 (7.350-7.450); BG PO2 331.5 mmHg (75.0-100.0); BG SAMPLE SITE RIGHT RADIAL; BG TOTAL HEMOGLOBIN 9.9 g/dL (12.0-18.0); BG VENT MODE VENT - AC
[2020-12-04] MEDS: CEFEPIME 2,000 MG in DEXT 5% WATER 100 ML IV SCH ×2 (09:21→21:11)
[2020-12-04] MEDS: FUROSEMIDE 40MG/4ML VIAL IVP SCH ×2 (09:21→18:18)
[2020-12-04] MEDS: DOCUSATE SODIUM SUGAR FREE 100MG/10ML UDC NG SCH ×2 (09:21→18:18)
[2020-12-04] MEDS ORDERED: POLYETHYLENE GLYCOL 3350 (17GM) 1 DOSE PACK PO NR (09:30)
[2020-12-04] MEDS ORDERED: BISACODYL 10MG SUPP PR PRN (09:30)
[2020-12-04] MEDS ORDERED: DEXTROSE 50% WATER 50ML SYRINGE IV PRN (09:30)
[2020-12-04] MEDS ORDERED: INSULIN GLARGINE UD 100 UNITS/ML SYR SUBCUT SCH (10:00)
[2020-12-04] MEDS: FENTANYL CITRATE/PF 2,500 MCG in SODIUM CHLORIDE 0.9% 200 ML IV PRN (15:45)
[2020-12-04] MEDS: BUDESONIDE 0.5MG/2ML NEB HHN SCH (20:50)
[2020-12-04] MEDS: ENOXAPARIN 40MG/0.4ML SYR SUBCUT SCH (21:12)
[2020-12-05] VITALS (96 sets, daily range): BP systolic 115–192; BP diastolic 49–118
[2020-12-05] MEDS: INSULIN LISPRO 100 UNITS/ML SUBCUT SCH ×4 (00:10→17:18)
[2020-12-05] MEDS: BLOOD SUGAR DIAGNOSTIC STRIP TEST SCH ×4 (00:10→17:17)
[2020-12-05] MEDS: IPRATROPIUM/ALBUTEROL 0.5-3(2.5)MG/3ML NEB HHN SCH ×4 (01:20→20:45)
[2020-12-05] MEDS: CLONIDINE 0.1MG TABLET PO PRN ×3 (04:57→17:25)
[2020-12-05] MEDS: SODIUM CHLORIDE 0.9% INJ 3ML FLUSH IVF SCH ×3 (05:12→21:30)
[2020-12-05] MEDS: AZITHROMYCIN 500 MG in DEXT 5% WATER 250 ML IV SCH (05:12)
[2020-12-05] MEDS: MIDAZOLAM HCL 100 MG in SODIUM CHLORIDE 0.9% 80 ML IV PRN (07:48)
[2020-12-05] MEDS: FENTANYL CITRATE/PF 2,500 MCG in SODIUM CHLORIDE 0.9% 200 ML IV PRN (07:49)
[2020-12-05] MEDS: BUDESONIDE 0.5MG/2ML NEB HHN SCH ×2 (08:43→20:45)
[2020-12-05 08:52] LABS: BG BASE EXCESS 3.4 mmol/L (-2.0-2.0); BG CARBOXYHEMOGLOBIN 0.3 % (0.5-1.5); BG DEOXYHEMOGLOBIN 3.3 % (0.0-5.0); BG FRACTION INSPIRED OXYGEN 40; BG HCO3 ACT 29.1 mmol/L (22.0-26.0); BG METHEMOGLOBIN 0.3 % (0.0-1.5); BG OXYGEN SATURATION 96.7 % (92.0-98.5); BG OXYHEMOGLOBIN 96.1 % (94.0-97.0); BG PCO2 49.5 mmHg (35.0-45.0); BG PH 7.387 (7.350-7.450); BG SAMPLE SITE LEFT RADIAL; BG TOTAL HEMOGLOBIN 10.2 g/dL (12.0-18.0); BG TOTAL RESPIRATORY RATE 15 b/min; BG VENT MODE VENT - AC
[2020-12-05] MEDS: PREDNISONE 20MG TABLET PO SCH (09:43)
[2020-12-05] MEDS: DOCUSATE SODIUM SUGAR FREE 100MG/10ML UDC NG SCH ×2 (09:43→16:36)
[2020-12-05] MEDS: FUROSEMIDE 40MG/4ML VIAL IVP SCH ×2 (09:43→16:36)
[2020-12-05] MEDS: CEFEPIME 2,000 MG in DEXT 5% WATER 100 ML IV SCH ×2 (09:43→20:06)
[2020-12-05] MEDS ORDERED: HYDRALAZINE HCL 25MG TABLET PO SCH (10:00)
[2020-12-05] MEDS ORDERED: LACTULOSE 20G/30ML UDC PO SCH (10:00)
[2020-12-05] MEDS: LACTULOSE 20G/30ML UDC PO PRN (10:18)
[2020-12-05] MEDS ORDERED: INSULIN GLARGINE UD 100 UNITS/ML SYR SUBCUT SCH (11:00)
[2020-12-05 12:21] LABS: BASOPHILS % 0.4 % (0.0-2.0); EOSINOPHILS % 4.7 % (0.0-5.0); HEMATOCRIT. 30.8 % (36.0-48.0); HEMOGLOBIN. 9.8 g/dL (12.0-16.0); LYMPHOCYTES % 19.7 % (20.0-50.0); MEAN CORPUSCULAR HEMOGLOBIN 27.5 pg (28.0-32.0); MEAN CORPUSCULAR VOLUME 86.2 fL (81.0-99.0); MEAN PLATELET VOLUME 7.2 fl (7.4-10.4); MONOCYTES % 8.9 % (2.0-8.0); NEUTROPHILS % 66.3 % (40.0-76.0); PLATELET 392 x1000/uL (130-400); RED BLOOD CELL COUNT 3.57 mill/uL (4.2-5.4); RED CELL DISTRIBUTION WIDTH 16.8 % (11.6-14.6)
[2020-12-05 12:23] LABS: CHLORIDE 102 mEq/L (98-107)
[2020-12-05] MEDS: HYDRALAZINE 20MG/ML VIAL IV PRN ×2 (14:32→21:26)
[2020-12-05] MEDS ORDERED: HYDRALAZINE HCL 25MG TABLET PO NR (15:20)
[2020-12-05] MEDS: ENOXAPARIN 40MG/0.4ML SYR SUBCUT SCH (20:06)
[2020-12-05] MEDS: HYDRALAZINE HCL 50MG TABLET PO SCH (20:06)
[2020-12-05] MEDS: AMLODIPINE 10MG TABLET PO SCH (21:43)
[2020-12-05] MEDS: ACETAMINOPHEN 325MG TABLET PO PRN (21:51)
[2020-12-05] MEDS: NICARDIPINE 100 MG in SODIUM CHLORIDE 0.9% 60 ML IV PRN (22:40)
[2020-12-06] VITALS (92 sets, daily range): BP systolic 120–167; BP diastolic 50–93
[2020-12-06] MEDS: BLOOD SUGAR DIAGNOSTIC STRIP TEST SCH ×4 (00:26→17:12)
[2020-12-06] MEDS: INSULIN LISPRO 100 UNITS/ML SUBCUT SCH ×4 (00:27→17:14)
[2020-12-06] MEDS: IPRATROPIUM/ALBUTEROL 0.5-3(2.5)MG/3ML NEB HHN SCH ×4 (00:39→20:31)
[2020-12-06] MEDS: CLONIDINE 0.1MG TABLET PO PRN (05:26)
[2020-12-06] MEDS: NICARDIPINE 100 MG in SODIUM CHLORIDE 0.9% 60 ML IV PRN ×3 (05:30→21:31)
[2020-12-06] MEDS: SODIUM CHLORIDE 0.9% INJ 3ML FLUSH IVF SCH ×3 (05:39→21:14)
[2020-12-06] MEDS: AZITHROMYCIN 500 MG in DEXT 5% WATER 250 ML IV SCH (05:39)
[2020-12-06] MEDS: HYDRALAZINE 20MG/ML VIAL IV PRN (05:47)
[2020-12-06 06:02] LABS: CHLORIDE 98 mEq/L (98-107)
[2020-12-06 06:05] LABS: BASOPHILS % 0.2 % (0.0-2.0); EOSINOPHILS % 0.7 % (0.0-5.0); HEMATOCRIT. 32.6 % (36.0-48.0); HEMOGLOBIN. 10.5 g/dL (12.0-16.0); LYMPHOCYTES % 12.2 % (20.0-50.0); MEAN CORPUSCULAR HEMOGLOBIN 27.1 pg (28.0-32.0); MEAN CORPUSCULAR VOLUME 84.1 fL (81.0-99.0); MEAN PLATELET VOLUME 7.8 fl (7.4-10.4); MONOCYTES % 7.4 % (2.0-8.0); NEUTROPHILS % 79.5 % (40.0-76.0); PLATELET 459 x1000/uL (130-400); RED BLOOD CELL COUNT 3.88 mill/uL (4.2-5.4); RED CELL DISTRIBUTION WIDTH 16.2 % (11.6-14.6)
[2020-12-06 07:48] LABS: BG BASE EXCESS 8.1 mmol/L (-2.0-2.0); BG CARBOXYHEMOGLOBIN 0.2 % (0.5-1.5); BG DEOXYHEMOGLOBIN 2.2 % (0.0-5.0); BG HCO3 ACT 33.4 mmol/L (22.0-26.0); BG METHEMOGLOBIN 0.1 % (0.0-1.5); BG OXYGEN SATURATION 97.8 % (92.0-98.5); BG OXYHEMOGLOBIN 97.5 % (94.0-97.0); BG PCO2 50.4 mmHg (35.0-45.0); BG PH 7.439 (7.350-7.450); BG PO2 103.2 mmHg (75.0-100.0); BG SAMPLE SITE RIGHT RADIAL; BG TOTAL HEMOGLOBIN 10.4 g/dL (12.0-18.0); BG VENT MODE VENT - SIMV
[2020-12-06] MEDS: BUDESONIDE 0.5MG/2ML NEB HHN SCH ×2 (08:10→20:31)
[2020-12-06] MEDS ORDERED: DEXTROSE 50% WATER 50ML SYRINGE IV PRN (09:00)
[2020-12-06] MEDS: HYDRALAZINE HCL 50MG TABLET PO SCH ×2 (09:05→21:13)
[2020-12-06] MEDS: AMLODIPINE 10MG TABLET PO SCH (09:05)
[2020-12-06] MEDS: CEFEPIME 2,000 MG in DEXT 5% WATER 100 ML IV SCH ×2 (09:05→21:20)
[2020-12-06] MEDS: DOCUSATE SODIUM SUGAR FREE 100MG/10ML UDC NG SCH ×2 (09:05→16:04)
[2020-12-06] MEDS: PREDNISONE 20MG TABLET PO SCH (09:06)
[2020-12-06] MEDS: FUROSEMIDE 40MG/4ML VIAL IVP SCH ×2 (09:06→16:04)
[2020-12-06] MEDS ORDERED: INSULIN GLARGINE UD 100 UNITS/ML SYR SUBCUT SCH (10:00)
[2020-12-06 10:52] LABS: BG BASE EXCESS 9.6 mmol/L (-2.0-2.0); BG CARBOXYHEMOGLOBIN 0.6 % (0.5-1.5); BG DEOXYHEMOGLOBIN 3.6 % (0.0-5.0); BG METHEMOGLOBIN 0.3 % (0.0-1.5); BG OXYGEN SATURATION 96.4 % (92.0-98.5); BG OXYHEMOGLOBIN 95.5 % (94.0-97.0); BG PCO2 51.7 mmHg (35.0-45.0); BG PH 7.448 (7.350-7.450); BG PO2 84.3 mmHg (75.0-100.0); BG SAMPLE SITE RIGHT RADIAL; BG TOTAL HEMOGLOBIN 10.9 g/dL (12.0-18.0); BG VENT MODE VENT - CPAP
[2020-12-06] MEDS: ENOXAPARIN 40MG/0.4ML SYR SUBCUT SCH (21:13)
[2020-12-07] VITALS (95 sets, daily range): BP systolic 116–178; BP diastolic 48–104
[2020-12-07] MEDS: IPRATROPIUM/ALBUTEROL 0.5-3(2.5)MG/3ML NEB HHN SCH ×4 (00:42→20:23)
[2020-12-07] MEDS: BLOOD SUGAR DIAGNOSTIC STRIP TEST SCH ×4 (00:43→17:02)
[2020-12-07] MEDS: INSULIN LISPRO 100 UNITS/ML SUBCUT SCH ×4 (00:49→17:03)
[2020-12-07] MEDS: SODIUM CHLORIDE 0.9% INJ 3ML FLUSH IVF SCH ×3 (05:42→21:11)
[2020-12-07] MEDS: NICARDIPINE 100 MG in SODIUM CHLORIDE 0.9% 60 ML IV PRN (06:00)
[2020-12-07] MEDS: BUDESONIDE 0.5MG/2ML NEB HHN SCH (08:56)
[2020-12-07] MEDS: DOCUSATE SODIUM SUGAR FREE 100MG/10ML UDC NG SCH ×2 (09:02→17:02)
[2020-12-07] MEDS: AMLODIPINE 10MG TABLET PO SCH (09:02)
[2020-12-07] MEDS: HYDRALAZINE HCL 25MG TABLET PO SCH ×3 (09:02→22:01)
[2020-12-07] MEDS: FUROSEMIDE 40MG/4ML VIAL IVP SCH ×2 (09:02→17:02)
[2020-12-07 09:58] LABS: BG BASE EXCESS 10.3 mmol/L (-2.0-2.0); BG CARBOXYHEMOGLOBIN 0.5 % (0.5-1.5); BG DEOXYHEMOGLOBIN 1.8 % (0.0-5.0); BG FRACTION INSPIRED OXYGEN 40; BG HCO3 ACT 34.9 mmol/L (22.0-26.0); BG METHEMOGLOBIN 0.1 % (0.0-1.5); BG OXYGEN SATURATION 98.2 % (92.0-98.5); BG OXYHEMOGLOBIN 97.6 % (94.0-97.0); BG PCO2 46.9 mmHg (35.0-45.0); BG PO2 107.8 mmHg (75.0-100.0); BG SAMPLE SITE RIGHT RADIAL; BG TOTAL HEMOGLOBIN 12.1 g/dL (12.0-18.0); BG VENT MODE VENT - SIMV
[2020-12-07] MEDS: CEFEPIME 2,000 MG in DEXT 5% WATER 100 ML IV SCH ×2 (11:14→21:08)
[2020-12-07] MEDS: INSULIN GLARGINE UD 100 UNITS/ML SYR SUBCUT SCH ×2 (11:16→21:09)
[2020-12-07] MEDS ORDERED: SPIRONOLACTONE 25MG TABLET PO SCH (13:45)
[2020-12-07] MEDS: LACTULOSE 20G/30ML UDC PO PRN (17:02)
[2020-12-07] MEDS: HYDRALAZINE 20MG/ML VIAL IV PRN (18:37)
[2020-12-07 18:45] LABS: CHLORIDE 101 mEq/L (98-107)
[2020-12-07] MEDS: ENOXAPARIN 40MG/0.4ML SYR SUBCUT SCH (21:08)
[2020-12-08] VITALS (79 sets, daily range): BP systolic 137–192; BP diastolic 45–88
[2020-12-08] MEDS: IPRATROPIUM/ALBUTEROL 0.5-3(2.5)MG/3ML NEB HHN SCH ×4 (00:34→20:22)
[2020-12-08] MEDS: BLOOD SUGAR DIAGNOSTIC STRIP TEST SCH ×4 (00:48→16:34)
[2020-12-08] MEDS: BISACODYL 10MG SUPP PR PRN (02:13)
[2020-12-08] MEDS: HYDRALAZINE 20MG/ML VIAL IV PRN ×2 (03:43→11:47)
[2020-12-08 05:13] LABS: EOSINOPHILS % 3.7 % (0.0-5.0); HEMATOCRIT. 31.7 % (36.0-48.0); HEMOGLOBIN. 10.4 g/dL (12.0-16.0); MEAN CORPUSCULAR HEMOGLOBIN 27.4 pg (28.0-32.0); MEAN CORPUSCULAR VOLUME 83.4 fL (81.0-99.0); NEUTROPHILS % 66.3 % (40.0-76.0); PLATELET 536 x1000/uL (130-400); RED CELL DISTRIBUTION WIDTH 16.5 % (11.6-14.6)
[2020-12-08] MEDS: HYDRALAZINE HCL 25MG TABLET PO SCH ×3 (05:13→22:53)
[2020-12-08] MEDS: INSULIN LISPRO 100 UNITS/ML SUBCUT SCH ×4 (05:14→16:34)
[2020-12-08] MEDS: SODIUM CHLORIDE 0.9% INJ 3ML FLUSH IVF SCH ×3 (05:16→22:54)
[2020-12-08 05:21] LABS: CHLORIDE 99 mEq/L (98-107)
[2020-12-08] MEDS: CLONIDINE 0.1MG TABLET PO PRN ×2 (07:20→16:56)
[2020-12-08] MEDS: FUROSEMIDE 40MG/4ML VIAL IVP SCH ×2 (09:14→16:55)
[2020-12-08] MEDS: AMLODIPINE 10MG TABLET PO SCH (09:14)
[2020-12-08] MEDS: DOCUSATE SODIUM SUGAR FREE 100MG/10ML UDC NG SCH ×2 (09:14→15:52)
[2020-12-08] MEDS: CEFEPIME 2,000 MG in DEXT 5% WATER 100 ML IV SCH (09:14)
[2020-12-08] MEDS: INSULIN GLARGINE UD 100 UNITS/ML SYR SUBCUT SCH ×2 (09:19→22:54)
[2020-12-08 13:06] LABS: BG BASE EXCESS 10.8 mmol/L (-2.0-2.0); BG CARBOXYHEMOGLOBIN 0.3 % (0.5-1.5); BG DEOXYHEMOGLOBIN 2.7 % (0.0-5.0); BG HCO3 ACT 34.7 mmol/L (22.0-26.0); BG METHEMOGLOBIN 0.3 % (0.0-1.5); BG OXYGEN SATURATION 97.3 % (92.0-98.5); BG OXYHEMOGLOBIN 96.7 % (94.0-97.0); BG PCO2 43.4 mmHg (35.0-45.0); BG PH 7.521 (7.350-7.450); BG PO2 93.2 mmHg (75.0-100.0); BG SAMPLE SITE RIGHT RADIAL; BG TOTAL HEMOGLOBIN 11.4 g/dL (12.0-18.0); BG VENT MODE VENT - CPAP
[2020-12-08] MEDS: ENOXAPARIN 40MG/0.4ML SYR SUBCUT SCH (22:51)
[2020-12-09] VITALS (38 sets, daily range): BP systolic 127–187; BP diastolic 57–103
[2020-12-09] MEDS: INSULIN LISPRO 100 UNITS/ML SUBCUT SCH ×4 (00:28→16:28)
[2020-12-09] MEDS: BLOOD SUGAR DIAGNOSTIC STRIP TEST SCH ×4 (00:29→16:28)
[2020-12-09] MEDS: IPRATROPIUM/ALBUTEROL 0.5-3(2.5)MG/3ML NEB HHN SCH ×4 (01:55→20:53)
[2020-12-09] MEDS: HYDRALAZINE 20MG/ML VIAL IV PRN ×3 (03:18→18:35)
[2020-12-09 05:39] LABS: HEMATOCRIT. 32.6 % (36.0-48.0); HEMOGLOBIN. 10.3 g/dL (12.0-16.0); MEAN CORPUSCULAR HEMOGLOBIN 26.7 pg (28.0-32.0); MEAN CORPUSCULAR VOLUME 84.6 fL (81.0-99.0); PLATELET 571 x1000/uL (130-400); RED BLOOD CELL COUNT 3.85 mill/uL (4.2-5.4); RED CELL DISTRIBUTION WIDTH 16.4 % (11.6-14.6)
[2020-12-09 05:43] LABS: CHLORIDE 98 mEq/L (98-107)
[2020-12-09 06:01] LABS: CREATINE KINASE 298 IU/L (26-192)
[2020-12-09 06:16] LABS: VITAMIN B12 SERUM 817 pg/mL (211-911)
[2020-12-09] MEDS: HYDRALAZINE HCL 25MG TABLET PO SCH ×3 (06:20→21:42)
[2020-12-09 08:37] LABS: BG CARBOXYHEMOGLOBIN 0.5 % (0.5-1.5); BG DEOXYHEMOGLOBIN 5.3 % (0.0-5.0); BG METHEMOGLOBIN 0.1 % (0.0-1.5); BG OXYGEN SATURATION 94.7 % (92.0-98.5); BG OXYHEMOGLOBIN 94.1 % (94.0-97.0); BG PCO2 45.3 mmHg (35.0-45.0); BG PH 7.553 (7.350-7.450); BG PO2 70.8 mmHg (75.0-100.0); BG SAMPLE SITE RIGHT RADIAL; BG TOTAL HEMOGLOBIN 11.2 g/dL (12.0-18.0); BG VENT MODE VENT - CPAP
[2020-12-09] MEDS: CLONIDINE 0.1MG TABLET PO PRN (08:48)
[2020-12-09] MEDS: AMLODIPINE 10MG TABLET PO SCH (08:48)
[2020-12-09] MEDS: FUROSEMIDE 40MG/4ML VIAL IVP SCH ×2 (08:48→16:40)
[2020-12-09] MEDS: DOCUSATE SODIUM SUGAR FREE 100MG/10ML UDC NG SCH ×2 (08:49→16:27)
[2020-12-09] MEDS: INSULIN GLARGINE UD 100 UNITS/ML SYR SUBCUT SCH ×2 (08:59→22:03)
[2020-12-09] MEDS: ACETAMINOPHEN 325MG TABLET PO PRN ×2 (10:15→16:40)
[2020-12-09 12:51] LABS: NUCLEATED RED BLOOD CELLS 1 /100 WBC; PLATELET ESTIMATE INCREASED
[2020-12-09] MEDS: CLONIDINE 0.1MG TABLET PO SCH ×2 (14:39→21:41)
[2020-12-09] MEDS: ENOXAPARIN 40MG/0.4ML SYR SUBCUT SCH (21:42)
[2020-12-10] VITALS (47 sets, daily range): BP systolic 136–175; BP diastolic 49–91
[2020-12-10] MEDS: IPRATROPIUM/ALBUTEROL 0.5-3(2.5)MG/3ML NEB HHN SCH ×4 (00:58→21:02)
[2020-12-10] MEDS: INSULIN LISPRO 100 UNITS/ML SUBCUT SCH ×4 (00:58→17:07)
[2020-12-10] MEDS: HYDRALAZINE HCL 25MG TABLET PO SCH ×3 (05:43→20:59)
[2020-12-10] MEDS: CLONIDINE 0.1MG TABLET PO SCH ×3 (05:44→21:00)
[2020-12-10] MEDS: BLOOD SUGAR DIAGNOSTIC STRIP TEST SCH ×3 (05:44→12:12)
[2020-12-10] MEDS: HYDRALAZINE 20MG/ML VIAL IV PRN (08:19)
[2020-12-10] MEDS: FUROSEMIDE 40MG/4ML VIAL IVP SCH ×2 (08:19→17:05)
[2020-12-10] MEDS: DOCUSATE SODIUM SUGAR FREE 100MG/10ML UDC NG SCH ×2 (08:20→17:05)
[2020-12-10] MEDS: AMLODIPINE 10MG TABLET PO SCH (08:20)
[2020-12-10] MEDS: INSULIN GLARGINE UD 100 UNITS/ML SYR SUBCUT SCH ×2 (09:47→21:01)
[2020-12-10 10:21] LABS: BG CARBOXYHEMOGLOBIN 0.4 % (0.5-1.5); BG DEOXYHEMOGLOBIN 1.8 % (0.0-5.0); BG FRACTION INSPIRED OXYGEN 35; BG HCO3 ACT 37.3 mmol/L (22.0-26.0); BG METHEMOGLOBIN 0.2 % (0.0-1.5); BG OXYGEN SATURATION 98.2 % (92.0-98.5); BG OXYHEMOGLOBIN 97.6 % (94.0-97.0); BG PH 7.518 (7.350-7.450); BG PO2 110.3 mmHg (75.0-100.0); BG SAMPLE SITE UAL; BG TOTAL HEMOGLOBIN 10.6 g/dL (12.0-18.0); BG VENT MODE COOL AEROSOL
[2020-12-10] MEDS: ENOXAPARIN 40MG/0.4ML SYR SUBCUT SCH (20:59)
[2020-12-11] VITALS (34 sets, daily range): BP systolic 114–171; BP diastolic 55–86
[2020-12-11] MEDS: BLOOD SUGAR DIAGNOSTIC STRIP TEST SCH ×4 (00:22→17:53)
[2020-12-11] MEDS: IPRATROPIUM/ALBUTEROL 0.5-3(2.5)MG/3ML NEB HHN SCH ×3 (03:34→20:12)
[2020-12-11] MEDS: CLONIDINE 0.1MG TABLET PO SCH ×3 (05:27→21:08)
[2020-12-11] MEDS: HYDRALAZINE HCL 25MG TABLET PO SCH (05:27)
[2020-12-11] MEDS: INSULIN LISPRO 100 UNITS/ML SUBCUT SCH ×5 (06:00→23:08)
[2020-12-11 06:02] LABS: HEMOGLOBIN. 9.8 g/dL (12.0-16.0); MEAN CORPUSCULAR HEMOGLOBIN 26.8 pg (28.0-32.0); MEAN PLATELET VOLUME 7.9 fl (7.4-10.4); PLATELET 662 x1000/uL (130-400); RED BLOOD CELL COUNT 3.65 mill/uL (4.2-5.4); RED CELL DISTRIBUTION WIDTH 16.3 % (11.6-14.6)
[2020-12-11 06:22] LABS: CHLORIDE 98 mEq/L (98-107)
[2020-12-11] MEDS: DOCUSATE SODIUM SUGAR FREE 100MG/10ML UDC NG SCH ×2 (08:13→18:02)
[2020-12-11] MEDS: AMLODIPINE 10MG TABLET PO SCH (08:14)
[2020-12-11] MEDS: FUROSEMIDE 40MG/4ML VIAL IVP SCH ×2 (08:14→18:02)
[2020-12-11 10:00] LABS: BG CARBOXYHEMOGLOBIN 0.7 % (0.5-1.5); BG DEOXYHEMOGLOBIN 0.6 % (0.0-5.0); BG FRACTION INSPIRED OXYGEN 28; BG HCO3 ACT 32.9 mmol/L (22.0-26.0); BG METHEMOGLOBIN 0.5 % (0.0-1.5); BG OXYGEN SATURATION 99.4 % (92.0-98.5); BG OXYHEMOGLOBIN 98.2 % (94.0-97.0); BG PCO2 33.4 mmHg (35.0-45.0); BG PH 7.611 (7.350-7.450); BG PO2 171.4 mmHg (75.0-100.0); BG SAMPLE SITE RIGHT RADIAL; BG TOTAL HEMOGLOBIN 10.4 g/dL (12.0-18.0); BG VENT MODE OXYGENATOR
[2020-12-11] MEDS: INSULIN GLARGINE UD 100 UNITS/ML SYR SUBCUT SCH ×2 (10:09→21:09)
[2020-12-11] MEDS: HYDRALAZINE HCL 100MG TABLET PO SCH ×2 (13:18→21:08)
[2020-12-11 16:54] LABS: PLATELET ESTIMATE INCREASED
[2020-12-11] MEDS: ENOXAPARIN 40MG/0.4ML SYR SUBCUT SCH (21:07)
[2020-12-11] MEDS: ACETAMINOPHEN 325MG TABLET PO PRN (21:08)
[2020-12-12] VITALS (13 sets, daily range): BP systolic 107–138; BP diastolic 57–97
[2020-12-12] MEDS: BLOOD SUGAR DIAGNOSTIC STRIP TEST SCH ×5 (00:14→23:08)
[2020-12-12] MEDS: IPRATROPIUM/ALBUTEROL 0.5-3(2.5)MG/3ML NEB HHN SCH ×4 (02:55→20:21)
[2020-12-12] MEDS: INSULIN LISPRO 100 UNITS/ML SUBCUT SCH ×4 (05:01→23:08)
[2020-12-12] MEDS: CLONIDINE 0.1MG TABLET PO SCH ×3 (05:12→21:48)
[2020-12-12] MEDS: HYDRALAZINE HCL 100MG TABLET PO SCH ×3 (05:13→21:48)
[2020-12-12 06:31] LABS: CHLORIDE 96 mEq/L (98-107)
[2020-12-12 06:41] LABS: PHOSPHORUS 3.8 mg/dL (2.5-4.9)
[2020-12-12] MEDS: FUROSEMIDE 40MG/4ML VIAL IVP SCH ×2 (09:21→17:50)
[2020-12-12] MEDS: DOCUSATE SODIUM SUGAR FREE 100MG/10ML UDC NG SCH ×2 (09:21→17:49)
[2020-12-12] MEDS: ACETAMINOPHEN 325MG TABLET PO PRN ×2 (09:22→16:43)
[2020-12-12] MEDS: AMLODIPINE 10MG TABLET PO SCH (09:27)
[2020-12-12] MEDS: INSULIN GLARGINE UD 100 UNITS/ML SYR SUBCUT SCH ×2 (09:31→21:57)
[2020-12-12] MEDS ORDERED: NALOXONE HCL 0.4MG/ML VIAL IV PRN (17:15)
[2020-12-12] MEDS: HYDROCODONE/ACETAMINOPHEN 10/325MG TABLET PO PRN (17:50)
[2020-12-12] MEDS: ENOXAPARIN 40MG/0.4ML SYR SUBCUT SCH (21:48)
[2020-12-13] VITALS (12 sets, daily range): BP systolic 118–158; BP diastolic 59–80
[2020-12-13] MEDS: ACETAMINOPHEN 325MG TABLET PO PRN (00:18)
[2020-12-13] MEDS: IPRATROPIUM/ALBUTEROL 0.5-3(2.5)MG/3ML NEB HHN SCH ×3 (02:09→21:00)
[2020-12-13] MEDS: DIPHENHYDRAMINE 50MG/ML VIAL IV PRN (05:31)
[2020-12-13] MEDS: FUROSEMIDE 40MG/4ML VIAL IVP SCH ×2 (05:31→18:39)
[2020-12-13] MEDS: CLONIDINE 0.1MG TABLET PO SCH ×3 (05:32→21:09)
[2020-12-13] MEDS: BLOOD SUGAR DIAGNOSTIC STRIP TEST SCH ×3 (05:32→18:22)
[2020-12-13] MEDS: HYDRALAZINE HCL 100MG TABLET PO SCH ×3 (05:32→21:08)
[2020-12-13] MEDS: INSULIN LISPRO 100 UNITS/ML SUBCUT SCH ×3 (05:38→18:00)
[2020-12-13] MEDS: DOCUSATE SODIUM SUGAR FREE 100MG/10ML UDC NG SCH ×2 (08:20→18:39)
[2020-12-13] MEDS: AMLODIPINE 10MG TABLET PO SCH (08:21)
[2020-12-13] MEDS: HYDROCODONE/ACETAMINOPHEN 10/325MG TABLET PO PRN ×2 (08:49→21:09)
[2020-12-13] MEDS: INSULIN GLARGINE UD 100 UNITS/ML SYR SUBCUT SCH ×2 (09:39→11:43)
[2020-12-13] MEDS: ENOXAPARIN 40MG/0.4ML SYR SUBCUT SCH (21:08)
[2020-12-14] VITALS (8 sets, daily range): BP systolic 114–147; BP diastolic 61–81
[2020-12-14] MEDS: INSULIN GLARGINE UD 100 UNITS/ML SYR SUBCUT SCH ×3 (01:00→21:17)
[2020-12-14] MEDS: FUROSEMIDE 40MG/4ML VIAL IVP SCH ×2 (06:21→17:31)
[2020-12-14] MEDS: HYDRALAZINE HCL 100MG TABLET PO SCH ×3 (06:21→21:16)
[2020-12-14] MEDS: CLONIDINE 0.1MG TABLET PO SCH ×3 (06:21→21:16)
[2020-12-14] MEDS: BLOOD SUGAR DIAGNOSTIC STRIP TEST SCH ×5 (06:21→23:33)
[2020-12-14] MEDS: HYDROCODONE/ACETAMINOPHEN 10/325MG TABLET PO PRN ×2 (06:22→17:31)
[2020-12-14] MEDS: INSULIN LISPRO 100 UNITS/ML SUBCUT SCH ×5 (06:29→23:35)
[2020-12-14 06:53] LABS: HEMATOCRIT. 27.5 % (36.0-48.0); HEMOGLOBIN. 8.8 g/dL (12.0-16.0); MEAN CORPUSCULAR HEMOGLOBIN 26.6 pg (28.0-32.0); MEAN CORPUSCULAR VOLUME 83.2 fL (81.0-99.0); MEAN PLATELET VOLUME 7.1 fl (7.4-10.4); PLATELET 836 x1000/uL (130-400); RED CELL DISTRIBUTION WIDTH 15.5 % (11.6-14.6)
[2020-12-14] MEDS: DOCUSATE SODIUM SUGAR FREE 100MG/10ML UDC NG SCH ×2 (08:09→17:31)
[2020-12-14] MEDS: AMLODIPINE 10MG TABLET PO SCH (08:10)
[2020-12-14] MEDS: ACETAMINOPHEN 325MG TABLET PO PRN (08:11)
[2020-12-14] MEDS: IPRATROPIUM/ALBUTEROL 0.5-3(2.5)MG/3ML NEB HHN SCH ×3 (08:24→20:30)
[2020-12-14 08:27] LABS: CHLORIDE 97 mEq/L (98-107)
[2020-12-14 15:06] LABS: BG BASE EXCESS 10.1 mmol/L (-2.0-2.0); BG CARBOXYHEMOGLOBIN 0.4 % (0.5-1.5); BG DEOXYHEMOGLOBIN 7.9 % (0.0-5.0); BG FRACTION INSPIRED OXYGEN 21; BG HCO3 ACT 34.1 mmol/L (22.0-26.0); BG METHEMOGLOBIN 0.3 % (0.0-1.5); BG OXYHEMOGLOBIN 91.4 % (94.0-97.0); BG PCO2 43.4 mmHg (35.0-45.0); BG PH 7.513 (7.350-7.450); BG PO2 61.1 mmHg (75.0-100.0); BG SAMPLE SITE LEFT BRACHIAL; BG TOTAL HEMOGLOBIN 9.8 g/dL (12.0-18.0); BG VENT MODE ROOM AIR
[2020-12-14 20:48] LABS: PLATELET ESTIMATE MARKEDLY INCREASED
[2020-12-14] MEDS: ENOXAPARIN 40MG/0.4ML SYR SUBCUT SCH (21:15)
[2020-12-14] MEDS: DIPHENHYDRAMINE 50MG/ML VIAL IV PRN (23:02)
[2020-12-15] VITALS (8 sets, daily range): BP systolic 113–152; BP diastolic 70–104
[2020-12-15] MEDS: IPRATROPIUM/ALBUTEROL 0.5-3(2.5)MG/3ML NEB HHN SCH ×4 (00:24→20:28)
[2020-12-15] MEDS: HYDROCODONE/ACETAMINOPHEN 10/325MG TABLET PO PRN (02:50)
[2020-12-15] MEDS: FUROSEMIDE 40MG/4ML VIAL IVP SCH (05:36)
[2020-12-15] MEDS: HYDRALAZINE HCL 100MG TABLET PO SCH ×3 (05:37→21:42)
[2020-12-15] MEDS: CLONIDINE 0.1MG TABLET PO SCH ×3 (05:37→21:42)
[2020-12-15] MEDS: BLOOD SUGAR DIAGNOSTIC STRIP TEST SCH ×3 (05:54→17:14)
[2020-12-15] MEDS: INSULIN LISPRO 100 UNITS/ML SUBCUT SCH ×3 (05:55→17:14)
[2020-12-15 08:40] LABS: BASOPHILS % 1.3 % (0.0-2.0); HEMATOCRIT. 28.4 % (36.0-48.0); LYMPHOCYTES % 19.7 % (20.0-50.0); MEAN CORPUSCULAR HEMOGLOBIN 26.2 pg (28.0-32.0); MEAN CORPUSCULAR VOLUME 82.4 fL (81.0-99.0); MEAN PLATELET VOLUME 7.1 fl (7.4-10.4); MONOCYTES % 7.9 % (2.0-8.0); NEUTROPHILS % 70.1 % (40.0-76.0); PLATELET 880 x1000/uL (130-400); RED BLOOD CELL COUNT 3.45 mill/uL (4.2-5.4); RED CELL DISTRIBUTION WIDTH 15.6 % (11.6-14.6)
[2020-12-15] MEDS: DOCUSATE SODIUM SUGAR FREE 100MG/10ML UDC NG SCH ×2 (08:50→17:35)
[2020-12-15] MEDS: INSULIN GLARGINE UD 100 UNITS/ML SYR SUBCUT SCH (08:51)
[2020-12-15] MEDS: AMLODIPINE 10MG TABLET PO SCH (08:51)
[2020-12-15 09:00] LABS: CHLORIDE 98 mEq/L (98-107)
[2020-12-15] MEDS: BISACODYL 10MG SUPP PR PRN (13:10)
[2020-12-15] MEDS ORDERED: POTASSIUM CHLORIDE 20MEQ TABLET SR PO NR (17:00)
[2020-12-15] MEDS ORDERED: ENOXAPARIN 30MG/0.3ML SYR SUBCUT SCH (21:00)
[2020-12-16] MEDS ORDERED: GABA-290 PO (03:30)
[2020-12-16] MEDS ORDERED: AMLO10TA80 PO (03:30)
[2020-12-16] MEDS ORDERED: CLON0.2T PO (03:30)
[2020-12-16] MEDS ORDERED: INSU100I24 SQ (03:30)
[2020-12-16] MEDS ORDERED: ZOLP10TA2 PO (03:30)
[2020-12-16] MEDS ORDERED: ALBU6.7H15 INH (03:30)
[2020-12-16] MEDS ORDERED: HYDR100T26 PO (03:30)
[2020-12-16] MEDS ORDERED: HYDR-4348 PO ×2 (03:30→03:43)
[2020-12-16] MEDS ORDERED: MECL-159 PO (03:30)
[2020-12-16] MEDS ORDERED: AMYL1CAP61 PO (03:30)
[2020-12-16] MEDS ORDERED: FURO-151 PO (03:30)
[2020-12-16] MEDS ORDERED: ATEN50TA PO (03:30)
[2020-12-16] MEDS ORDERED: OMEP20TA2 PO (03:30)
[2020-12-16] MEDS ORDERED: IPRA3AMP9 NEB (03:30)
[2020-12-16] MEDS ORDERED: HYDR50TA PO (03:30)
[2020-12-16] MEDS ORDERED: P20 PO ×2 (03:30)
[2020-12-16] MEDS ORDERED: METF-874 PO (03:30)
[2020-12-16] MEDS ORDERED: FUROSEMIDE 40MG TABLET PO SCH (09:00)
== END 2020-12-15 22:25 | DRG 207 ==
LOC: ER 02:16 → MICUSO 04:11 → EDBEDREQ 04:51 → MICUSO 12-03 02:42 → 5EST 12-11 15:05
PROVIDERS: ADMIT Internal Medicine; ATTEND Internal Medicine
PROC: 5A1955Z Respiratory Ventilation, Greater than 96 Consecutive Hours (ICD-10-PCS; principal; 2020-12-02)
PROC: 0BH17EZ Insertion of Endotracheal Airway into Trachea, Via Natural or Artificial Opening (ICD-10-PCS; 2020-12-02)
PROC: 0BH17EZ Insertion of Endotracheal Airway into Trachea, Via Natural or Artificial Opening (ICD-10-PCS; 2020-12-03)
PROC: 05HY33Z Insertion of Infusion Device into Upper Vein, Percutaneous Approach (ICD-10-PCS; 2020-12-03)
PROC: B54MZZA Ultrasonography of Right Upper Extremity Veins, Guidance (ICD-10-PCS; 2020-12-03)
DX: J96.01 Acute respiratory failure with hypoxia (principal); I50.33 Acute on chronic diastolic (congestive) heart failure; G82.50 Quadriplegia, unspecified; J18.9 Pneumonia, unspecified organism; E87.2 Acidosis; R65.10 Systemic inflammatory response syndrome (SIRS) of non-infectious origin without acute organ dysfunction; M62.82 Rhabdomyolysis; J44.1 Chronic obstructive pulmonary disease with (acute) exacerbation; G93.40 Encephalopathy, unspecified; J44.0 Chronic obstructive pulmonary disease with (acute) lower respiratory infection; J96.02 Acute respiratory failure with hypercapnia; I11.0 Hypertensive heart disease with heart failure; F17.200 Nicotine dependence, unspecified, uncomplicated; I16.0 Hypertensive urgency; E11.65 Type 2 diabetes mellitus with hyperglycemia; Z20.822 Contact with and (suspected) exposure to COVID-19; E11.40 Type 2 diabetes mellitus with diabetic neuropathy, unspecified; M48.02 Spinal stenosis, cervical region; I27.20 Pulmonary hypertension, unspecified; E66.01 Morbid (severe) obesity due to excess calories; E78.5 Hyperlipidemia, unspecified; I08.1 Rheumatic disorders of both mitral and tricuspid valves; S71.012A Laceration without foreign body, left hip, initial encounter; E11.649 Type 2 diabetes mellitus with hypoglycemia without coma; S00.81XA Abrasion of other part of head, initial encounter; Y92.238 Other place in hospital as the place of occurrence of the external cause; X58.XXXA Exposure to other specified factors, initial encounter; Z82.49 Family history of ischemic heart disease and other diseases of the circulatory system; Z87.01 Personal history of pneumonia (recurrent); Z88.6 Allergy status to analgesic agent; Z79.899 Other long term (current) drug therapy; Z78.1 Physical restraint status; Z68.33 Body mass index [BMI] 33.0-33.9, adult; Y93.89 Activity, other specified; Y99.8 Other external cause status
CPT/HCPCS: 31500; 36415; 36600; 70551; 71045; 71250; 72141; 76937; 80048; 80053; 80061; 80305; 81003; 82040; 82375; 82550; 82553; 82607; 82805; 82962; 83036; 83605; 83735; 83880; 84100; 84134; 84439; 84443; 84478; 84484; 85025; 85379; 87070; 92610; 93005; 93306; 93970; 94002; 94003; 94640; 94660; 97112; 97162; 97166; 97530; 99291; C1725; J0360; J0456; J0692; J0696; J1200; J1650; J1815; J1940; J2250; J2405; J2704; J2920; J2930; J3010; J3490; J7030; J7040; J7050; J7060; J7512; J7626; U0003; U0005

== ENCOUNTER 2020-12-15 22:10 | Inpatient (IN) | payer MEDICARE, MEDICAID ==
[~2020-12-15] VITALS: Ht 165.1 cm; Wt 97.5 kg
[2020-12-15 22:15] VITALS: BP 109/44
[2020-12-15 22:30] VITALS: BP 109/44
[2020-12-15] MEDS ORDERED: IPRATROPIUM/ALBUTEROL 0.5-3(2.5)MG/3ML NEB HHN PRN (23:15)
[2020-12-15] MEDS ORDERED: DEXTROSE 50% WATER 50ML SYRINGE IV PRN (23:15)
[2020-12-15] MEDS ORDERED: BISACODYL 5MG TABLET PO PRN (23:15)
[2020-12-15] MEDS ORDERED: LACTULOSE 20G/30ML UDC PO PRN (23:15)
[2020-12-15] MEDS ORDERED: CLONIDINE 0.1MG TABLET PO PRN (23:15)
[2020-12-15] MEDS ORDERED: NALOXONE HCL 0.4 MG/ML 1ML VIAL IV PRN (23:15)
[2020-12-15] MEDS ORDERED: MAGNESIUM/ALUMINUM HYDROXIDE/SIMETHICONE 30ML UDC PO PRN (23:15)
[2020-12-15] MEDS ORDERED: ENOXAPARIN 30MG/0.3ML SYR SUBCUT SCH (23:15)
[2020-12-15] MEDS ORDERED: BISACODYL 10MG SUPP PR PRN (23:15)
[2020-12-15] MEDS ORDERED: DIPHENHYDRAMINE 50MG/ML VIAL IV PRN (23:15)
[2020-12-15] MEDS ORDERED: NA PHOS,M-B/NA PHOS,DI-BA ENEMA 118ML PR PRN (23:15)
[2020-12-15] MEDS ORDERED: ACETAMINOPHEN 325MG TABLET PO PRN (23:15)
[2020-12-16] MEDS: BLOOD SUGAR DIAGNOSTIC STRIP TEST SCH ×4 (00:11→18:00)
[2020-12-16] MEDS: INSULIN GLARGINE UD 100 UNITS/ML SYR SUBCUT SCH ×3 (00:12→22:00)
[2020-12-16] MEDS: IPRATROPIUM/ALBUTEROL 0.5-3(2.5)MG/3ML NEB HHN SCH ×3 (01:30→20:16)
[2020-12-16] MEDS: HYDROCODONE/ACETAMINOPHEN 10/325MG TABLET PO PRN (01:40)
[2020-12-16 03:04] VITALS: BP 145/62
[2020-12-16] MEDS ORDERED: AMYL1CAP61 PO (03:30)
[2020-12-16] MEDS ORDERED: HYDR100T26 PO (03:30)
[2020-12-16] MEDS ORDERED: FURO-151 PO (03:30)
[2020-12-16] MEDS ORDERED: ALBU6.7H15 INH (03:30)
[2020-12-16] MEDS ORDERED: HYDR50TA PO (03:30)
[2020-12-16] MEDS ORDERED: OMEP20TA2 PO (03:30)
[2020-12-16] MEDS ORDERED: CLON0.2T PO (03:30)
[2020-12-16] MEDS ORDERED: IPRA3AMP9 NEB (03:30)
[2020-12-16] MEDS ORDERED: P20 PO ×2 (03:30)
[2020-12-16] MEDS ORDERED: AMLO10TA80 PO (03:30)
[2020-12-16] MEDS ORDERED: INSU100I24 SQ (03:30)
[2020-12-16] MEDS ORDERED: HYDR-4348 PO ×2 (03:30→03:43)
[2020-12-16] MEDS ORDERED: ATEN50TA PO (03:30)
[2020-12-16] MEDS ORDERED: METF-874 PO (03:30)
[2020-12-16] MEDS ORDERED: ZOLP10TA2 PO (03:30)
[2020-12-16] MEDS ORDERED: MECL-159 PO (03:30)
[2020-12-16] MEDS ORDERED: GABA-290 PO (03:30)
[2020-12-16] MEDS: CLONIDINE 0.1MG TABLET PO SCH ×3 (05:36→21:29)
[2020-12-16] MEDS: INSULIN LISPRO 100 UNITS/ML SUBCUT SCH ×4 (05:36→22:03)
[2020-12-16] MEDS: HYDRALAZINE HCL 100MG TABLET PO SCH ×3 (05:36→21:30)
[2020-12-16 06:38] LABS: BASOPHILS % 0.6 % (0.0-2.0); EOSINOPHILS % 0.8 % (0.0-5.0); HEMATOCRIT. 29.1 % (36.0-48.0); HEMOGLOBIN. 9.4 g/dL (12.0-16.0); LYMPHOCYTES % 15.7 % (20.0-50.0); MEAN CORPUSCULAR HEMOGLOBIN 26.8 pg (28.0-32.0); MEAN CORPUSCULAR VOLUME 82.9 fL (81.0-99.0); MEAN PLATELET VOLUME 6.7 fl (7.4-10.4); MONOCYTES % 7.7 % (2.0-8.0); NEUTROPHILS % 75.2 % (40.0-76.0); PLATELET 876 x1000/uL (130-400); RED BLOOD CELL COUNT 3.52 mill/uL (4.2-5.4); RED CELL DISTRIBUTION WIDTH 16.1 % (11.6-14.6)
[2020-12-16 07:20] LABS: CHLORIDE 101 mEq/L (98-107)
[2020-12-16 08:00] VITALS: BP 151/67
[2020-12-16] MEDS: DOCUSATE SODIUM 100MG CAPSULE PO SCH ×2 (08:52→17:34)
[2020-12-16] MEDS: FUROSEMIDE 40MG TABLET PO SCH (08:52)
[2020-12-16] MEDS: AMLODIPINE 10MG TABLET PO SCH (08:52)
[2020-12-16] MEDS ORDERED: INSULIN GLARGINE UD 100 UNITS/ML SYR SUBCUT SCH (10:00)
[2020-12-16] MEDS: ENOXAPARIN 30MG/0.3ML SYR SUBCUT SCH ×2 (12:02→21:30)
[2020-12-16 14:21] VITALS: BP 175/103
[2020-12-16 20:00] VITALS: BP 144/72
[2020-12-17] MEDS: IPRATROPIUM/ALBUTEROL 0.5-3(2.5)MG/3ML NEB HHN SCH ×3 (01:32→13:30)
[2020-12-17] MEDS: BLOOD SUGAR DIAGNOSTIC STRIP TEST SCH ×4 (05:58→17:03)
[2020-12-17] MEDS: HYDRALAZINE HCL 100MG TABLET PO SCH ×3 (05:58→21:33)
[2020-12-17] MEDS: CLONIDINE 0.1MG TABLET PO SCH ×3 (05:59→21:33)
[2020-12-17] MEDS: INSULIN LISPRO 100 UNITS/ML SUBCUT SCH ×3 (05:59→17:03)
[2020-12-17 08:00] VITALS: BP 159/82
[2020-12-17] MEDS: DOCUSATE SODIUM 100MG CAPSULE PO SCH ×2 (08:21→17:03)
[2020-12-17] MEDS: FUROSEMIDE 40MG TABLET PO SCH (08:21)
[2020-12-17] MEDS: AMLODIPINE 10MG TABLET PO SCH (08:21)
[2020-12-17] MEDS: ENOXAPARIN 30MG/0.3ML SYR SUBCUT SCH ×2 (08:22→21:32)
[2020-12-17] MEDS: INSULIN GLARGINE UD 100 UNITS/ML SYR SUBCUT SCH ×2 (10:35→21:34)
[2020-12-17] MEDS: HYDROCODONE/ACETAMINOPHEN 10/325MG TABLET PO PRN ×2 (11:16→17:03)
[2020-12-17 20:00] VITALS: BP 151/77
[2020-12-18] MEDS: HYDRALAZINE HCL 100MG TABLET PO SCH (05:29)
[2020-12-18] MEDS: CLONIDINE 0.1MG TABLET PO SCH (06:00)
[2020-12-18] MEDS: INSULIN LISPRO 100 UNITS/ML SUBCUT SCH ×3 (06:00→11:41)
[2020-12-18] MEDS: BLOOD SUGAR DIAGNOSTIC STRIP TEST SCH ×2 (06:03)
[2020-12-18] MEDS: IPRATROPIUM/ALBUTEROL 0.5-3(2.5)MG/3ML NEB HHN SCH (07:28)
[2020-12-18 07:53] VITALS: BP 129/68
[2020-12-18] MEDS: ENOXAPARIN 30MG/0.3ML SYR SUBCUT SCH (08:36)
[2020-12-18] MEDS: FUROSEMIDE 40MG TABLET PO SCH (09:38)
[2020-12-18] MEDS: DOCUSATE SODIUM 100MG CAPSULE PO SCH (09:38)
[2020-12-18] MEDS: AMLODIPINE 10MG TABLET PO SCH (09:39)
[2020-12-18] MEDS: INSULIN GLARGINE UD 100 UNITS/ML SYR SUBCUT SCH (09:39)
[2020-12-18] MEDS: HYDROCODONE/ACETAMINOPHEN 10/325MG TABLET PO PRN (11:39)
== END 2020-12-18 13:30 | disposition left against medical advice (07) | DRG 70 ==
LOC: MERGE 22:10
PROVIDERS: ADMIT Psychiatry & Neurology Neurology; ATTEND Internal Medicine
DX: G93.40 Encephalopathy, unspecified (principal); J96.01 Acute respiratory failure with hypoxia; J96.02 Acute respiratory failure with hypercapnia; I50.33 Acute on chronic diastolic (congestive) heart failure; G82.50 Quadriplegia, unspecified; J44.1 Chronic obstructive pulmonary disease with (acute) exacerbation; I11.0 Hypertensive heart disease with heart failure; I27.20 Pulmonary hypertension, unspecified; E66.9 Obesity, unspecified; E78.5 Hyperlipidemia, unspecified; I08.1 Rheumatic disorders of both mitral and tricuspid valves; E11.40 Type 2 diabetes mellitus with diabetic neuropathy, unspecified; G72.9 Myopathy, unspecified; Z53.29 Procedure and treatment not carried out because of patient's decision for other reasons; M25.532 Pain in left wrist; M79.642 Pain in left hand; M19.90 Unspecified osteoarthritis, unspecified site; Z79.899 Other long term (current) drug therapy; Z79.4 Long term (current) use of insulin; Z79.84 Long term (current) use of oral hypoglycemic drugs; Z68.35 Body mass index [BMI] 35.0-35.9, adult; S31.000A Unspecified open wound of lower back and pelvis without penetration into retroperitoneum, initial encounter; G95.20 Unspecified cord compression
CPT/HCPCS: 36415; 73110; 73130; 80048; 82962; 85025; 92523; 93970; 94640; 97112; 97116; 97162; 97166; 97530; 97535; J1650; J1815